=== PATIENT | male | born 1955 | race Caucasian/White ===

== ENCOUNTER 2023-06-13 20:25 | Inpatient (IN) | payer OTHER, SELFPAY ==
--- NOTE | 2023-06-13 | ECG_ITS ---
Test Reason : CHEST PAIN Blood Pressure : / mmHG Vent. Rate : 075 BPM Atrial Rate : 075 BPM P-R Int : 106 ms QRS Dur : 084 ms QT Int : 374 ms P-R-T Axes : 072 071 065 degrees QTc Int : 417 ms Poor data quality, interpretation may be adversely affected Sinus rhythm with short KS Otherwise normal ECG When compared with ECG of 16-APR-2019 17:44, Questionable change in QRS duration KS interval has decreased Referred By: Generic ED Physician Electronically Signed By:LEXA ENRIQUEZ
--- NOTE | ~2023-06-13 | XR_ITS ---
EXAMINATION: XR CHEST CLINICAL INFORMATION: Spontaneous pneumothorax COMPARISON: 06/14/2023 TECHNIQUE: AP portable upright (time stamp 0725 hours) view of the chest was obtained. FINDINGS: The left pleural pigtail catheter has become partially withdrawn. There is persistent subcutaneous emphysema on the left. Trace left pneumothorax is visualized. Diffusely thick-walled airways and streaky atelectasis at the left base again noted. Stable heart and mediastinum. No acute osseous finding. Postsurgical changes in the right upper quadrant. Nonobstructive gas pattern. XR/XR chest 1V IMPRESSION: Partial withdrawal of left pleural pigtail catheter with trace left pneumothorax
--- NOTE | ~2023-06-13 | XR_ITS ---
EXAMINATION: XR CHEST CLINICAL INFORMATION: Pneumothorax COMPARISON: Previous images from 06/13/2023 TECHNIQUE: AP upright portable view of the chest was obtained. FINDINGS: Left pleural pigtail catheter in place at the lateral left base. Persistent moderate subcutaneous emphysema without improvement. Trace left apical pneumothorax. Persistent diffuse abnormal reticular lung markings. Stable heart and mediastinum. Postsurgical changes in the right upper quadrant. Nonobstructive gas pattern. XR/XR chest 1V IMPRESSION: Persistent trace left apical pneumothorax and moderate subcutaneous emphysema with pleural pigtail catheter placed. Persistent diffuse reticular lung markings.
--- NOTE | ~2023-06-13 | XR_ITS ---
EXAMINATION: XR CHEST CLINICAL INFORMATION: Dyspnea COMPARISON: None available. TECHNIQUE: 2 views of the chest were obtained. FINDINGS: Cardiac leads overlie the chest. The lungs are well expanded. There is a large left-sided pneumothorax. The right lung is clear. The cardiomediastinal silhouette is within normal limits. Degenerative changes of the spine. No acute osseous abnormality seen. There is anterior wedging of a mid thoracic vertebral body. XR/XR chest 2V IMPRESSION: Large left-sided pneumothorax. This critical result was discussed with Dr. Mendoza by telephone at 06/13/2023 9:39 PM and it was ascertained that the content and urgency of the report was understood at the time of direct communication.
--- NOTE | ~2023-06-13 | XR_ITS ---
EXAMINATION: XR chest 1V CLINICAL INFORMATION: Reason for Exam Chest Tube COMPARISON: Prior chest x-ray 06/13/2023 same day earlier TECHNIQUE: XR chest 1V Tubes and lines: Left chest tube inserted. Lungs and pleura: Left lung reexpanded. Mild interstitial opacification left lung base might be mild infiltrate or atelectasis unchanged. Probably very small residual left apical pneumothorax. Heart and mediastinum: The mediastinum is within normal limits.. Bones/soft tissue: Skeletal structures included are normal for patient's age. XR/XR chest 1V IMPRESSION: Chest tube inserted on the left, properly positioned. Left pneumothorax significantly improved. Left lung reexpanded. Probably residual very mild left apical pneumothorax. Mild infiltrate and/or atelectasis left lung base unchanged.
--- NOTE | ~2023-06-13 | XR_ITS ---
EXAMINATION: XR CHEST CLINICAL INFORMATION: Left-sided pneumothorax on water seal COMPARISON: Previous chest x-ray most recent from yesterday TECHNIQUE: Frontal view of the chest was obtained. FINDINGS: Pigtail chest tube at the left lung base. Small left apical pneumothorax similar to yesterday's exam. The cardiac and mediastinal contours are stable. Small 2 to 3 mm dense left upper lobe nodule question representing a calcified granuloma. Subsegmental atelectasis at the lung bases. No significant pleural effusion. Small amount of left chest wall subcutaneous emphysema. XR/XR chest 1V IMPRESSION: Satisfactory position of left chest tube. Small left apical pneumothorax similar to yesterday's exam.
[2023-06-13 20:31] VITALS: BP 122/60; BP 149/85; PULSE 75; PULSE 83; RESP 20; TEMP 36.9; O2SAT 93; O2SAT 96; BMI 25.5
[2023-06-13 20:43] VITALS: PULSE 74
--- NOTE | 2023-06-13 20:49 | MHC.EDTECH ---
patient came in via ems ekg taken and was read by provider ,pt was hooked up to telemetry monitor ,vitals sign taken ,RN in room triaging patient ,pt was bladder changer into hospital attire .
--- NOTE | 2023-06-13 21:00 | PC.NURSE ---
Pt BIBA from home, Pt reports 7/10 constant sharp substernal/left side, no radiating, CP starting at 1530, worsening at 1830, unbearable at 2000, no relief with nitro spray given by EMS. Pt also reports SOB, Pt speaking in full sentences, Spo2 93% on RA, non labored breathing, lung sounds diminished to left side.
--- NOTE | 2023-06-13 21:00 | MHC.EDTECH ---
PATIENT BLOOD DRAWN AND SENT TO LAB .
[2023-06-13 21:02] LABS: MANUAL DIFF FLAG NO
[2023-06-13 21:12] LABS: Basophils Absolute Auto 0.1 X10*3/uL (0.0-0.2); Basophils Percent Auto 0.8 % (0-2); Eosinophils Absolute Auto 0.4 X10*3/uL (0.0-0.4); Eosinophils Percent Auto 4.5 % (0-4); Hematocrit 45.9 % (42.0-52.0); Hemoglobin 15.9 g/dl (14.0-18.0); Imm Gran Abs Auto 0.02 X10*3/uL (0.00-0.03); Imm Gran Pct Auto 0.2 % (0.0-0.4); Lymphocytes Percent Auto 22.2 % (20-40); Mean Corpuscular HGB Conc 34.6 g/dl (31.0-36.0); Mean Corpuscular Hemoglobin 31.5 pg (27.0-33.0); Mean Corpuscular Volume 90.9 fL (80.0-98.0); Mean Platelet Volume 9.4 fL (9.4-12.4); Monocytes Absolute Auto 0.7 X10*3/uL (0.1-1.2); Monocytes Percent Auto 8.1 % (2-11); Neutrophils Absolute Auto 5.7 x10*3/uL (2.0-8.3); Neutrophils Percent Auto 64.2 % (45-73); Platelet Count 200 X10*3/uL (160-400); Red Blood Count 5.05 X10*6/uL (4.60-5.80); Red Cell Distribution Width 12.6 % (11.0-16.0); White Blood Count 8.9 X10*3/uL (4.8-10.8)
[2023-06-13 21:33] LABS: Alanine Aminotransferase 21 U/L (0-40); Albumin Level 4.2 g/dL (3.5-5.0); Alkaline Phosphatase 81 U/L (39-117); Anion Gap 13 (12-20); Aspartate Amino Transferase 18 U/L (5-37); Bilirubin Total 0.5 mg/dL (0.0-1.0); Blood Urea Nitrogen 22 mg/dL (9-16); Calcium 10.6 mg/dL (8.4-10.2); Carbon Dioxide 27 mmol/L (22-29); Chloride 108 mmol/L (96-108); Creatinine Clr Calc Pharmacy 52.9; Estimated Glomerular Filt Rate 51; Glucose Random 91 mg/dL (60-115); Potassium 5.2 mmol/L (3.3-5.1); Sodium 143 mmol/L (135-145); Total Protein 7.8 g/dL (6.5-8.0)
--- NOTE | 2023-06-13 21:37 | ED_ITS ---
HPI - Chest Pain General Chief Complaint: Chest Pain Stated Complaint: CHEST PAIN Time Seen by Provider: 06/13/23 21:30 Source: patient Mode of arrival: ambulatory Limitations: no limitations History of Present Illness HPI narrative: Patients with hx DVT on Eliquis no known coronary artery disease comes in for chest pain started earlier at 15:30 today constant sharp substernal and left- sided chest pain with increased shortness of breath, no radiation chest pain got worse at 18:30 EMS gave aspirin and nitro spray x3 with no relief EKG on arrival without any acute ischemic changes Related Data Home Medications Medication Instructions Recorded Confirmed 2 Sleep medicines PO 07/26/22 Anxiety medicine PO 07/26/22 amitriptyline 10 mg tablet 10 - 20 mg PO BEDTIME PRN insomnia 08/08/22 albuterol sulfate 90 mcg/actuation 2 puff inhalation Q6H PRN wheezing 06/13/23 06/13/23 aerosol inhaler (Ventolin HFA) apixaban 5 mg tablet (Eliquis) 5 mg PO BID 06/13/23 06/13/23 atorvastatin 20 mg tablet 20 mg PO DAILY 06/13/23 06/13/23 fluticasone fur. 100 mcg-umeclid 1 ea inhalation DAILY 06/13/23 06/13/23 62.5 mcg-vilant 25 mcg inhalat.powder (Trelegy Ellipta) metoprolol tartrate 25 mg tablet 25 mg PO BID 06/13/23 06/13/23 Previous Rx's Medication Instructions Recorded hydrocortisone 1 % lotion 1 appl topical TID PRN skin 08/08/22 (Anti-Itch (hydrocortisone)) irritation #120 mL triamcinolone acetonide 0.1 % 1 appl topical BID 30 days #80 09/23/22 topical cream grams Allergies Allergy/AdvReac Type Severity Reaction Status Date / Time Iodinated Contrast Media Allergy Hives Verified 06/13/23 20:43 [Contrast Dye] Review of Systems Review of Systems: Yes all other systems are reviewed and are negative [facility] Past Medical History Medical History COPD (chronic obstructive pulmonary disease) DVT (deep venous thrombosis) Mixed hyperlipidemia Tobacco abuse Social History Social History Alcohol intake: former Patient Tobacco Use Status: Current everyday Tobacco user Smoked in Last 30 Days: Yes Use of substances other than those prescribed or required for medical reasons: No Advance Directives: No Advance Directives Information Provided: Yes Nutrition Risks: No Nutritional Risk Physical Exam Vital Signs: Vital Signs: Last Vital Signs Temp 98.2 F 06/14/23 02:33 Pulse 67 06/14/23 02:33 Resp 22 H 06/14/23 02:33 BP 145/80 H 06/14/23 02:33 Pulse Ox 97 06/14/23 02:33 O2 Del Method Room Air 06/14/23 02:33 O2 Flow Rate 4 06/14/23 01:48 BMI result Body Mass Index 25.5 Appearance: Alert. Oriented X3. No acute distress. Eyes: PERRLA, No Nystagmus ENT: Pharynx normal. Oral Mucosa moist Neck: Normal inspection. Neck supple. CVS: Normal heart rate and rhythm. Pulses normal. Respiratory: No respiratory distress. Hyper-resonant decreased air entry on the left side, no midline shift no wheezing/rales/rhonchi Abdomen: Soft and nontender. Bowel sounds are present, no mass palpable, no CVA tenderness Skin: Skin warm and dry. Normal skin color. Normal skin turgor. Extremities: No lower extremity edema. No calf tenderness Neuro: Oriented X 3. No motor deficit. Medications Administered Generic Name Dose Route Start Last Admin Trade Name Freq PRN Reason Stop Dose Admin Acetaminophen 650 mg 06/14/23 00:02 06/14/23 01:45 Acetaminophen 325 Mg Tablet PO 650 mg Q6H PRN Administration Pain, Mild (Pain Scale 1-3) Discontinued Medications Generic Name Dose Route Start Last Admin Trade Name Freq PRN Reason Stop Dose Admin Lidocaine 1 patch 06/14/23 03:51 06/14/23 04:02 Lidocaine 4 % Patch Adh..Patch TRANSDERMA 06/14/23 03:52 1 patch ONCE ONE Administration Protocol Tramadol HCl 50 mg 06/13/23 23:28 06/13/23 23:35 Tramadol Hcl 50 Mg Tablet PO 06/13/23 23:29 50 mg ONCE ONE Administration Tramadol HCl 50 mg 06/14/23 03:46 06/14/23 04:02 Tramadol Hcl 50 Mg Tablet PO 06/14/23 03:47 Not Given ONCE ONE Procedures Chest Tube Chest Tube 1: Chest Tube Location: left and fifth interspace Size of Tube (cm): 14 Chest Tube Prep: Yes betadine prep and sterile drapes applied Local Anesthetic: lidocaine 2% Amount of anesthesia used (mL): 5 Incision Made With: #10 blade Post Procedure: sutured to skin and sterile dressing applied Tube Drainage: none Post Procedure CXR?: Yes Patient Tolerated Procedure: Yes Medical Decision Making Medical Decision Making [facility] Narrative: Patient with left pneumothorax will place chest tube Differential Diagnosis Differential Diagnoses: The differential diagnosis associated with the presentation includes ACS/pneumothorax/pneumonia/bronchitis/atypical chest pain Consult Healthcare Provider Management of the patient was discussed with: Hospitalist Lab Data [facility] Lab Attestation statement: I reviewed the patient's lab results. 06/13/23 20:58 06/13/23 20:58 Labs: Lab Results 06/13/23 06/13/23 06/13/23 Range/Units 20:58 20:58 20:58 WBC 8.9 (4.8-10.8) X10*3/uL RBC 5.05 (4.60-5.80) X10*6/uL Hgb 15.9 (14.0-18.0) g/dl Hct 45.9 (42.0-52.0) % MCV 90.9 (80.0-98.0) fL MCH 31.5 (27.0-33.0) pg MCHC 34.6 (31.0-36.0) g/dl RDW 12.6 (11.0-16.0) % Plt Count 200 (160-400) X10*3/uL MPV 9.4 (9.4-12.4) fL Immature Gran % (Auto) 0.2 (0.0-0.4) % Neut % (Auto) 64.2 (45-73) % Lymph % (Auto) 22.2 (20-40) % [place] % (Auto) 8.1 (2-11) % Eos % (Auto) 4.5 H (0-4) % Baso % (Auto) 0.8 (0-2) % Lymph # (Auto) 2.0 (1.2-4.9) X10*3/uL [place] # (Auto) 0.7 (0.1-1.2) X10*3/uL Eos # (Auto) 0.4 (0.0-0.4) X10*3/uL Baso # (Auto) 0.1 (0.0-0.2) X10*3/uL Abs Immat Gran (auto) 0.02 (0.00-0.03) X10*3/uL Absolute Neuts (auto) 5.7 (2.0-8.3) x10*3/uL Absolute Nucleated RBC 0.000 (0.0-0.012) X10*3/uL Nucleated RBC % (auto) 0.0 (0.0-0.2) /100WBC Sodium 143 (135-145) mmol/L Potassium 5.2 H (3.3-5.1) mmol/L Chloride 108 (96-108) mmol/L Carbon Dioxide 27 (22-29) mmol/L Anion Gap 13 (12-20) BUN 22 H (9-16) mg/dL Creatinine 1.39 (0.5-1.4) mg/dL Estim Creat Clear Calc 52.9 Estimated GFR 51 Random Glucose 91 (60-115) mg/dL Calcium 10.6 H (8.4-10.2) mg/dL Total Bilirubin 0.5 (0.0-1.0) mg/dL AST 18 (5-37) U/L ALT 21 (0-40) U/L Alkaline Phosphatase 81 (39-117) U/L Troponin I High Sens < 2.7 (<3.5-35.0) ng/L Total Protein 7.8 (6.5-8.0) g/dL Albumin 4.2 (3.5-5.0) g/dL Critical Care Time Critical Care Time Critical Care Time: Yes Total Critical Care Time: 45 Attestation: The patient was critically ill with a high probability of imminent or life threatening deterioration. I spent greater than 50 minutes of discontinuous time evaluating the patient,delivering critical care at the bedside, discussing and evaluating pertinent data with consultants. Critical care time does not include time spent performing separately billable procedures or teaching. Total time spent performing critical care was 45 minutes. Discharge Plan Discharge Clinical Impression: Pneumothorax Patient Disposition: Admitted As Inpatient
[2023-06-13 21:42] LABS: Troponin-I High Sensitivity < 2.7 ng/L (<3.5-35.0)
--- NOTE | 2023-06-13 22:30 | PC.NURSE ---
Left sided Chest tube placed by Dr. Malloy, 80 wall suction, continuos suction at -20. Pt denies CP, reports pain to insertion site. Medicated per DEC.
[2023-06-13 22:41] VITALS: BP 132/78; PULSE 73; RESP 16; TEMP 36.9; O2SAT 99
[2023-06-13] MEDS: traMADoL HCL 50 MG TABLET PO (23:35)
[2023-06-13 23:53] VITALS: BP 143/77; PULSE 68; RESP 18; TEMP 36.9; O2SAT 98
--- NOTE | 2023-06-13 23:54 | MHC.EDTECH ---
0000 ROUNDING DONE ,VITALS SIGN TAKEN ,PT WATCHING TELEVISION ,PT GIRLFRIEND AT BEDSIDE .
--- NOTE | 2023-06-14 00:05 | P.HPHOSP_ITS ---
History of Present Illness Date of Service: 06/14/23 Chief Complaint: Dyspnea This is a 67-year-old male with pertinent history of DVT on Eliquis, mixed hyperlipidemia, COPD not on home oxygen, tobacco use disorder who presents to the emergency department for evaluation of dyspnea and chest discomfort. Patient states he had sudden onset of chest discomfort while he was watching television. It was constant, nonradiating and without any relieving factors. Patient called EMS and said he received aspirin and nitroglycerin with did not reduce the chest discomfort. It was associated with dyspnea, worse with ex ertion. Patient denies fever, chills, palpitations, abdominal pain, changes in urinary or bowel habits. In the emergency department, imaging with pneumothorax and chest tube was placed. Review of Systems Constitutional: Constitutional: Reports no additional constitutional complaints Cardiovascular: Cardiovascular: Reports chest pain, Reports chest pain at rest and Reports dyspnea Respiratory: Respiratory: Reports dyspnea Gastrointestinal: Gastrointestinal: Reports no additional gastrointestinal complaints Genitourinary: Genitourinary: Reports no additional male genitourinary complaints [facility] Medical History COPD (chronic obstructive pulmonary disease) DVT (deep venous thrombosis) Mixed hyperlipidemia Tobacco abuse Pertinent family history: No family history of early CAD Social History Alcohol intake: former Patient Tobacco Use Status: Current everyday Tobacco user Smoked in Last 30 Days: Yes Use of substances other than those prescribed or required for medical reasons: No Advance Directives: No Advance Directives Information Provided: Yes Nutrition Risks: No Nutritional Risk Meds Allergies Allergy/AdvReac Type Severity Reaction Status Date / Time Iodinated Contrast Media Allergy Hives Verified 06/13/23 20:43 [Contrast Dye] Home Medications Medication Instructions Recorded Confirmed Last Taken Type 2 Sleep medicines PO 07/26/22 Unknown History Anxiety medicine PO 07/26/22 Unknown History amitriptyline 10 mg tablet 10 - 20 mg PO BEDTIME PRN insomnia 08/08/22 Unknown History albuterol sulfate 90 mcg/actuation 2 puff inhalation Q6H PRN wheezing 06/13/23 06/13/23 Unknown History aerosol inhaler (Ventolin HFA) apixaban 5 mg tablet (Eliquis) 5 mg PO BID 06/13/23 06/13/23 Unknown History atorvastatin 20 mg tablet 20 mg PO DAILY 06/13/23 06/13/23 Unknown History fluticasone fur. 100 mcg-umeclid 1 ea inhalation DAILY 06/13/23 06/13/23 Unknown History 62.5 mcg-vilant 25 mcg inhalat.powder (Trelegy Ellipta) metoprolol tartrate 25 mg tablet 25 mg PO BID 06/13/23 06/13/23 Unknown History Physical Exam Vital Signs and Narrative: Vital Signs: Last Vital Signs Temp 98.5 F 06/13/23 23:53 Pulse 68 06/13/23 23:53 Resp 18 06/13/23 23:53 BP 143/77 H 06/13/23 23:53 Pulse Ox 98 06/13/23 23:53 O2 Del Method Nasal Cannula 06/13/23 23:53 O2 Flow Rate 4 06/13/23 23:53 BMI result Body Mass Index 25.5 Middle-aged male lying in bed in mild distress on supplemental oxygen Neck supple, no JVD Regular rate and rhythm, S1-S2 heard Reduced left-sided breath sounds, chest tube present to suction Abdomen soft nontender, no guarding, no rigidity Patient is awake, alert and oriented to self, place, time and person ; no focal motor deficit Psych: Normal mood No pedal edema Results Labs 06/13/23 20:58 06/13/23 20:58 Labs: Laboratory Results - last 24 hr 06/13/23 06/13/23 20:58 20:58 MCV 90.9 MCH 31.5 MCHC 34.6 RDW 12.6 Plt Count 200 MPV 9.4 Immature Gran % (Auto) 0.2 Neut % (Auto) 64.2 Lymph % (Auto) 22.2 [place] % (Auto) 8.1 Eos % (Auto) 4.5 H Baso % (Auto) 0.8 Lymph # (Auto) 2.0 [place] # (Auto) 0.7 Eos # (Auto) 0.4 Baso # (Auto) 0.1 Abs Immat Gran (auto) 0.02 Absolute Neuts (auto) 5.7 Absolute Nucleated RBC 0.000 Nucleated RBC % (auto) 0.0 Anion Gap 13 Estim Creat Clear Calc 52.9 Estimated GFR 51 Random Glucose 91 Calcium 10.6 H Total Bilirubin 0.5 AST 18 ALT 21 Alkaline Phosphatase 81 Total Protein 7.8 Albumin 4.2 Imaging Radiologist's Impressions: Impressions Chest X-Ray 06/13/23 21:22 IMPRESSION: Large left-sided pneumothorax. This critical result was discussed with Dr. Mendoza by telephone at 06/13/2023 9:39 PM and it was ascertained that the content and urgency of the report was understood at the time of direct communication. Chest X-Ray 06/13/23 22:33 IMPRESSION: Chest tube inserted on the left, properly positioned. Left pneumothorax significantly improved. Left lung reexpanded. Probably residual very mild left apical pneumothorax. Mild infiltrate and/or atelectasis left lung base unchanged. Assessment and Plan (1) Pneumothorax: Status: Acute Plan This is a 67-year-old male with pertinent history of DVT on Eliquis, mixed hyperlipidemia, COPD not on home oxygen, tobacco use disorder who presents to the emergency department for evaluation of dyspnea and chest discomfort. #. Spontaneous pneumothorax, secondary in the setting of COPD. Counseled regarding cessation of tobacco use. Continue chest tube to suction. Repeat chest x-ray in a.m.. Consulted thoracic surgery, appreciate assistance #. Acute hypoxemic respiratory failure in the setting of above. Monitor oxygen saturation and wean as tolerated. Maintain oxygen saturation greater than 88% #. Mixed hyperlipidemia. On statin #. DVT: On Eliquis #. COPD. Continue home inhalers #. Tobacco use disorder. Refused nicotine patch Med rec pending DVT prophylaxis: Eliquis Full code Admit as inpatient and will require two night minimum hospital stay for supplemental oxygen. Specialist consult pending Time Spent With Patient Time: Total time managing care of this patient today ____ minutes. Quality Stroke Does the patient have a stroke diagnosis?: No VTE Prior VTE?: Yes VTE Risk Level:: Medical - moderate - high VTE Device Contraindication: Treatment Not Indicated VTE Drug Contraindication: N/A - Med Ordered
[2023-06-14] MEDS: Acetaminophen 325 MG TABLET 650 MG PO ×3 (01:45→15:14)
[2023-06-14 01:48] VITALS: BP 138/88; PULSE 70; RESP 22; O2SAT 100
--- NOTE | 2023-06-14 01:49 | PC.NURSE ---
Nurse to nurse report given, Pt will be transported to ED overflow, Pt aware of plan.
[2023-06-14 02:33] VITALS: BP 145/80; PULSE 67; RESP 22; TEMP 36.8; O2SAT 97
[2023-06-14] MEDS: Lidocaine 4 % Patch ADH..PATCH 1 PATCH TRANSDERMA (04:02)
--- NOTE | 2023-06-14 04:48 | PC.NURSE ---
Pt arrived to ED overflow from main ED at 02:30 07/15. Awaiting bed assignment on med-surg for c/c of chest pain. ED EKG showing NSR, imaging showed left PTX for which a left lateral chest tube was placed in the main ED. Chest tube continues to -20sx as on arrival. No crepitus or air leak noted. Scant drainage noted in the canister. Insertion site has a tegaderm that is c/d/i without drainage noted beneath. Pt is A&Ox4, calm and cooperative. Pt denies chest pain but does c/o pain at left flank surrounding the chest tube insertion site. Pt vocalized to this auto service writer that he does not want opiates, stating ?I am in recovery from opiates and I?ve come too far now with it. I?d rather be in a little pain now versus a lot of pain down the road?. Tylenol ineffective per pt report. Covering Dr. Ruiz notified and pt?s pain management wishes and needs discussed. Lidocaine patch ordered and placed. Pillow provided for thoracic splinting and pt educated on importance of use for deep breathing, coughing, sneezing, etc. Pt weaned to RA on arrival with spo2 maintained. Denies sob. Breathing is even and unlabored without distress. Pt resting in bed at this time. Will continue to monitor for the remainder of this auto service writer's shift.
[2023-06-14 05:25] LABS: Basophils Percent Auto 0.4 % (0-2); Eosinophils Absolute Auto 0.4 X10*3/uL (0.0-0.4); Eosinophils Percent Auto 3.8 % (0-4); Hematocrit 45.5 % (42.0-52.0); Hemoglobin 15.9 g/dl (14.0-18.0); Imm Gran Abs Auto 0.02 X10*3/uL (0.00-0.03); Imm Gran Pct Auto 0.2 % (0.0-0.4); Lymphocytes Absolute Auto 2.1 X10*3/uL (1.2-4.9); Lymphocytes Percent Auto 22.7 % (20-40); MANUAL DIFF FLAG NO; Mean Corpuscular HGB Conc 34.9 g/dl (31.0-36.0); Mean Corpuscular Hemoglobin 31.5 pg (27.0-33.0); Mean Corpuscular Volume 90.1 fL (80.0-98.0); Mean Platelet Volume 8.9 fL (9.4-12.4); Monocytes Absolute Auto 0.7 X10*3/uL (0.1-1.2); Monocytes Percent Auto 7.3 % (2-11); Neutrophils Percent Auto 65.6 % (45-73); Platelet Count 171 X10*3/uL (160-400); Red Blood Count 5.05 X10*6/uL (4.60-5.80); Red Cell Distribution Width 12.7 % (11.0-16.0); White Blood Count 9.1 X10*3/uL (4.8-10.8)
[2023-06-14 05:41] LABS: Anion Gap 12 (12-20); Blood Urea Nitrogen 25 mg/dL (9-16); Carbon Dioxide 24 mmol/L (22-29); Chloride 107 mmol/L (96-108); Creatinine Clr Calc Pharmacy 56.2; Estimated Glomerular Filt Rate 55; Glucose Random 94 mg/dL (60-115); Potassium 4.3 mmol/L (3.3-5.1); Sodium 139 mmol/L (135-145)
--- NOTE | 2023-06-14 07:00 | PHA.MEDREC ---
Pharmacy Consult ? Medication Reconciliation Pharmacy has reviewed the medication reconciliation done by RN
[2023-06-14 09:58] VITALS: BP 144/73; PULSE 72; RESP 16; TEMP 36.8; O2SAT 94
--- NOTE | 2023-06-14 12:15 | PM.EVENT ---
Event Note Date of Service: 06/14/23 Event Note: This is a 67-year-old male with pertinent history of DVT on Eliquis, mixed hyperlipidemia, COPD not on home oxygen, tobacco use disorder who presents to the emergency department for evaluation of dyspnea and chest discomfort. Spontaneous pneumothorax, secondary in the setting of COPD.? Continue chest tube to suction.? Repeat chest x-ray showing persistent trace left apical pneumothorax and moderate subcutaneous emphysema with pleural pigtail catheter in place thoracic surgery consult pending pain management (prefers non narcotic medications due to hx of substance abuse) Acute hypoxemic respiratory failure in the setting of above.? Resolved Monitor oxygen saturation and wean as tolerated.? Maintain oxygen saturation greater than 88% Mixed hyperlipidemia.? On statin DVT On lifelong Eliquis, hold due to ct placement COPD.? Continue home inhalers Tobacco use disorder.? Refused nicotine patch DVT prophylaxis:? Eliquis on hold Full code Admit as inpatient and will require two night minimum hospital stay for supplemental oxygen.? Specialist consult pending Time Spent With Patient Time: Total time managing care of this patient today ____ minutes.
[2023-06-14 12:31] VITALS: BP 149/80; PULSE 72; RESP 20; TEMP 36.5; O2SAT 93
[2023-06-14 12:55] VITALS: BMI 26.0
[2023-06-14 16:01] VITALS: BP 141/89; PULSE 68; RESP 20; TEMP 36.6; O2SAT 96
--- NOTE | 2023-06-14 16:05 | PM.PNTS ---
Subjective Subjective Date of Service: 06/14/23 Interval history: 67 y/o gentleman who presented to [place] ED via EMS yesterday for sharp sternal pain that traveled across his chest. The intensity worsened and he became more short of breath and called EMS. He was brought to and ruled out for ischemic cardiac changes. CXR confirmed a left pneumothorax and a pigtail drain was placed on the left side by the ED MD. Thoracic surgery was consulted for management of his chest tube. He is a recovering alcohol and is refusing narcotic pain medication and is still in some pain. 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 PSH: S/P cholecystectomy, Laser surgery for poor circulation in the left LE. SH: current smoker. started @ age 18. Smokes an avg of 1 ppd until recently (now 3 - 5 cigarettes/day), [id number]. Pt is a recovering alcoholic, denies IVDA and lives alone. Allergies: IV contrast dye Medications: as reported in med rec ROS: pt denies CVA, TIA, ameurosis fugax, any new lumps/bumps suggestive of lymphadenopathy, unintentional weight loss, hemoptysis, hematemeis, melena, bleeding dyscrasias, frequent bouts of bronchitis or pneumonia, fall, trauma, or any type of injury. he admits to coughing just before the pain started. He states that this was his normal COPD cough- no different. CXR: Persistent trace left apical pneumothorax and moderate subcutaneous emphysema with pleural pigtail catheter placed. Persistent diffuse reticular lung markings. Reviewed labs Physical Exam Vital Signs: Vital Signs: Last Vital Signs Temp 97.8 F 06/14/23 16:01 Pulse 68 06/14/23 16:01 Resp 20 06/14/23 16:01 BP 141/89 H 06/14/23 16:01 Pulse Ox 96 06/14/23 16:01 O2 Del Method Room Air 06/14/23 16:01 O2 Flow Rate 4 06/14/23 01:48 BMI result Body Mass Index 26.0 Const: Other: Mr. Rhodes states that he feels better than yesterday. He denies any chest pain but does say that he has pain around the tube site. HEENT: Other: NC/AT, EOMI. no sinus tenderness, no JVD, tongue midline, and hearing intact. Chest: Chest palpation & inspection: normal inspection of the chest Breast/axilla palpation: axillary lymphadenopathy not noted Resp: Effort & Inspection: normal respiratory effort and audible wheezes (bilaterally anteriorly and posteriorly) Cardio: Jugular venous distension: no JVD Rate: regular rate Rhythm: regular rhythm GI: Other: abdominal distension that he reports as normal, firm, normal BS throughout : Other: voiding freely Skin: Other: Venous stasis in bilateral lower extremities Neuro: Other: Grossly intact and strenth equal bilaterally Extrem: Other: Pulses: L/R carotid 2+ bilaterally, L/R radial 2+ bilateral, Femoral L/R 2+ bilaterally, Psych: Other: appropriate Procedures Date of Service Date of Service: 06/14/23 Progress Note: A&P Assessment and plan (1) Pneumothorax: Status: Acute (2) COPD (chronic obstructive pulmonary disease): Status: Acute (3) Tobacco abuse: Status: Acute Plan Left sided spontaneous pneumothorax Mr. Rhodes is a 67 y/o gentleman who presents with a left sided spontaneous ptx who had no recent trauma or fall but had been sitting on his couch coughing when the chest pain and SOB began. ? Rupture of bleb. He sought treatment @ . Near complete left ptx was found upon CXR. Left 14 indonesian pigtail placed with near resolution. Residual Trace left apical ptx remaining. There is minimal drainage and no air leak present. Plan: Keep CT to -20 mm Hg X 48 hours to maintain lung to adhere to chest wall after which we will determine changing to waterseal. CXR in am. Adequate pain management: pt requesting to avoid narcotics, recommend ATC Acetaminophen (if able to tolerate @ a lower dose due to fatty liver dz), Advil, 4% Lidocaine patch, Gabapentin 100 mg TID COPD: inhalers to limit wheezing and cough Tobacco abuse - pt is looking to stop smoking. Nicoderm is he is agreeable. OOB and ambute in room while on suction Pulmonary Rehab to include Incentive Spirometry and Flutter valve and needs education. DVT prophylaxis: okay for SQ heparin Continue to follow patient Time Spent With Patient Time: Total time managing care of this patient today ____ minutes. Quality Stroke Does the patient have a stroke diagnosis?: No VTE Prior VTE?: Yes VTE Risk Level:: Medical - moderate - high VTE Device Contraindication: Treatment Not Indicated VTE Drug Contraindication: N/A - Med Ordered
[2023-06-14] MEDS: Gabapentin 100 MG CAPSULE PO (18:21)
[2023-06-14] MEDS: 0.9 % Sodium Chloride Flush 3 ML SYRINGE IVFLUSH ×2 (18:23→22:50)
[2023-06-14 19:36] VITALS: BP 142/78; PULSE 66; RESP 20; TEMP 36.2; O2SAT 95
[2023-06-14] MEDS: Enoxaparin Sodium 40 MG/0.4 ML SYRINGE SUBCUT (21:19)
[2023-06-14] MEDS: Metoprolol Tartrate 25 MG TABLET PO (21:19)
[2023-06-14] MEDS: HYDROmorphone HCl 1 MG/ML SYRINGE IVPUSH (22:49)
[2023-06-15 00:20] VITALS: BP 150/90; PULSE 69; RESP 20; TEMP 36.4; O2SAT 92
[2023-06-15 07:09] VITALS: BP 141/81; PULSE 62; RESP 20; TEMP 36.3; O2SAT 95
[2023-06-15] MEDS: Fluticasone/Umeclidinium/Vilanterol 100/62.5/25 BLST.W.DEV 1 PUFF INHALE (07:43)
[2023-06-15 08:15] VITALS: PULSE 66; RESP 20; O2SAT 94
[2023-06-15] MEDS: Metoprolol Tartrate 25 MG TABLET PO ×2 (08:53→21:21)
[2023-06-15] MEDS: 0.9 % Sodium Chloride Flush 3 ML SYRINGE IVFLUSH ×2 (08:53→12:06)
[2023-06-15] MEDS: Gabapentin 100 MG CAPSULE PO ×3 (08:53→21:21)
[2023-06-15] MEDS: Atorvastatin Calcium 20 MG TABLET PO (08:53)
--- NOTE | 2023-06-15 10:03 | HO.PM.IMPN ---
Subjective Subjective Date of Service: 06/15/23 Review of Systems Follow up pneumothorax still pain at insertion site Physical Exam Vital Signs: Vital Signs: Last Vital Signs Temp 97.4 F 06/15/23 07:09 Pulse 66 06/15/23 08:15 Resp 20 06/15/23 08:15 BP 141/81 H 06/15/23 07:09 Pulse Ox 95 06/15/23 07:09 O2 Del Method Room Air 06/15/23 07:09 O2 Flow Rate 4 06/14/23 01:48 BMI result Body Mass Index 26.0 Appearing in no acute distress lung sounds are clear to auscultation, Left pneumothorax and pigtail drain with CT to -20 suction heart regular rate rhythm, clear S1, S2 positive bowel sounds, abdomen is soft, nontender neuro patient is alert x3, no focal deficits Objective Data Active Medications Acetaminophen (Acetaminophen 325 Mg Tablet) 650 mg PO Q6H PRN PRN Reason: Pain, Mild (Pain Scale 1-3) Last Admin: 06/14/23 15:14 Dose: 650 mg Documented By: AMY Acetaminophen (Acetaminophen Supp 650 Mg Supp.Rect) 650 mg ND Q6H PRN PRN Reason: Pain, Mild (Pain Scale 1-3) Albuterol Sulfate (Albuterol Sulfate 90 Mcg 8 Gm Inhaler) 2 puff INHALE Q6H PRN PRN Reason: wheezing Atorvastatin Calcium (Atorvastatin Calcium 20 Mg Tablet) 20 mg PO DAILY [facility] Last Admin: 06/15/23 08:53 Dose: 20 mg Documented By: AMY Fluticasone/Umeclidinium/Vilanterol (Fluticasone/Umeclidinium/Vilanterol 100/62.5/25 Blst.W.Dev) 1 puff INHALE DAILY [facility] Last Admin: 06/15/23 07:43 Dose: 1 puff Documented By: MICHELLE Gabapentin (Gabapentin 100 Mg Capsule) 100 mg PO TID [facility] Last Admin: 06/15/23 08:53 Dose: 100 mg Documented By: AMY Melatonin (Melatonin 3 Mg Tablet) 6 mg PO BEDTIME PRN PRN Reason: Insomnia Metoprolol Tartrate (Metoprolol Tartrate 25 Mg Tablet) 25 mg PO BID [facility]; Protocol Last Admin: 06/15/23 08:53 Dose: 25 mg Documented By: AMY Ondansetron HCl (Ondansetron Hcl 4 Mg/2 Ml Vial) 4 mg IVPUSH Q8H PRN PRN Reason: Nausea and Vomiting Oxycodone HCl (Oxycodone Hcl Immed Release 5 Mg Tablet) 5 mg PO Q4H PRN PRN Reason: Pain, Mild (Pain Scale 1-3) Pharmacy Consult (Consult Rx Perform Med Rec) 1 each MISCELLANE ONCE PRN PRN Reason: Consult order Sodium Chloride (0.9 % Sodium Chloride Flush 3 Ml Syringe) 3 ml IVFLUSH QSHIFT [facility] Last Admin: 06/15/23 08:53 Dose: 3 ml Documented By: AMY Labs 06/14/23 05:14 06/14/23 05:14 Assessment and Plan (1) COPD (chronic obstructive pulmonary disease): Status: Acute Plan This is a 67-year-old male with pertinent history of DVT on Eliquis, mixed hyperlipidemia, COPD not on home oxygen, tobacco use disorder who presents to the emergency department for evaluation of dyspnea and chest discomfort. Spontaneous pneumothorax, secondary in the setting of COPD, ? Blebs Continue chest tube to suction -20? Repeat chest x-ray? showing persistent trace left apical pneumothorax and moderate subcutaneous emphysema with pleural pigtail catheter in place thoracic surgery following rec> CT to -20 for 48hrs, IS, flutter valve, pain mamagement, NRT pain management (prefers non narcotic medications due to hx of substance abuse) Acute hypoxemic respiratory failure in the setting of above.? Resolved Monitor oxygen saturation and wean as tolerated.? Maintain oxygen saturation greater than 88% Mixed hyperlipidemia.? On statin DVT On lifelong Eliquis, hold due to ct placement COPD.? Continue home inhalers Tobacco use disorder.? Refused nicotine patch DVT prophylaxis:? Eliquis on hold, sc heparin Full code continue hospitalization for chest tube management Time Spent With Patient Time: Total time managing care of this patient today ____ minutes. Quality Stroke Does the patient have a stroke diagnosis?: No VTE Prior VTE?: Yes VTE Risk Level:: Medical - moderate - high VTE Device Contraindication: Treatment Not Indicated VTE Drug Contraindication: N/A - Med Ordered
[2023-06-15] MEDS: Heparin Sodium,Porcine 5,000 UNIT/ML VIAL 5000 UNIT SUBCUT ×2 (10:27→22:37)
[2023-06-15] MEDS: HYDROmorphone HCl 0.5 MG/0.5 ML SYRINGE IVPUSH ×3 (12:06→22:36)
--- NOTE | 2023-06-15 14:12 | P.PNTS_ITS ---
Subjective Subjective Date of Service: 06/15/23 Interval history: Mr. Rhodes is a 67 y/o male with hx of COPD and on Friday was in his usual state of health sitting on the couch and began coughing and subsequently experienced chest pain and SOB. He was found to have a SPTX and pigtail was placed with near resolution. CT has been on - 20 mm Hg since Friday evening and CXR shows residual trace left apical pneumothorax. ROS: pt denies fever, chills, Chest pain,SOB, N/V, abdominal pain & calf pain. He does state that he is beginning to cough up some yellow sputum. He is Pulling > 2L ON IS. Physical Exam Vital Signs: Vital Signs: Last Vital Signs Temp 97.4 F 06/15/23 07:09 Pulse 66 06/15/23 08:15 Resp 20 06/15/23 08:15 BP 141/81 H 06/15/23 07:09 Pulse Ox 95 06/15/23 07:09 O2 Del Method Room Air 06/15/23 07:09 O2 Flow Rate 4 06/14/23 01:48 BMI result Body Mass Index 26.0 Const: Other: He is alert and orientated X 3. He did take some pain medication and is more comfortable. General: cooperative, comfortable and no acute distress HEENT: Head: Yes normal to inspection and Yes atraumatic Ears: hearing grossly normal bilaterally General nose exam: Normal external nose present Face and sinus: Yes normal facial exam and Yes sinuses nontender Mouth: Normal oral and palatal mucosa present Neck: Neck: Yes normal visual inspection and Yes no lymphadenopathy Chest: Chest palpation & inspection: normal inspection of the chest Resp: Auscultation: bronchial breath sounds (with occasional scant wheezes bilaterally) Cardio: Rate: regular rate Rhythm: regular rhythm Neuro: Other: Grossly intact Extrem: Other: No calf tenderness, + bilateral venous stasis changes on LE Psych: Appearance: grossly normal Procedures Date of Service Date of Service: 06/15/23 Progress Note: A&P Assessment and plan (1) Pneumothorax: Start date: 06/13/23 Status: Acute Plan Mr. Rhodes is a 67 y/o gentleman who presents with a left sided spontaneous ptx who had no recent trauma or fall but had been sitting on his couch coughing when the chest pain and SOB began. ? Rupture of bleb.? He sought treatment @ HH.? Near complete left ptx was found upon CXR.? Left 14 english pigtail placed with near resolution.? Residual Trace left apical ptx remaining. There is minimal drainage and no air leak present. Plan: Change CT suction to waterseal tonight. F/U CXR in am. If remains stable, likely to remove tomorrow. Pain management:? pt taking dilaudid prn, ATC Acetaminophen (if able to tolerate @ a lower dose due to fatty liver dz), Advil, 4% Lidocaine patch, and recommend Gabapentin 100 mg TID COPD:? inhalers to limit wheezing and cough. Monitor sputum, may need abx therapy Tobacco abuse - pt is looking to stop smoking.? Nicoderm is he is agreeable. OOB and ambute as tolerates. Pulmonary Rehab to include Incentive Spirometry and Flutter valve and needs education. DVT prophylaxis:? on SQ heparin Continue to follow patient Postoperative Patient Education - No heavy lifting > 10 pounds X 1 month -No flying in airplane for 1 month (patient has an upcoming trip in Sep) -No scuba diving ever - No smoking due to high risk of this occuring again. Time Spent With Patient Time: Total time managing care of this patient today ___30_ minutes. Quality Stroke Does the patient have a stroke diagnosis?: No VTE Prior VTE?: Yes VTE Risk Level:: Medical - moderate - high VTE Device Contraindication: Treatment Not Indicated VTE Drug Contraindication: N/A - Med Ordered
[2023-06-15 15:25] VITALS: BP 110/70; PULSE 74; RESP 20; TEMP 36.3; O2SAT 96
[2023-06-15 19:31] VITALS: BP 117/68; PULSE 74; RESP 16; TEMP 36.3; O2SAT 96
[2023-06-16 03:18] VITALS: BP 139/81; PULSE 75; RESP 18; TEMP 36.2; O2SAT 95
[2023-06-16] MEDS: HYDROmorphone HCl 0.5 MG/0.5 ML SYRINGE IVPUSH ×2 (03:26→08:24)
[2023-06-16 06:56] VITALS: BP 121/75; PULSE 71; RESP 18; TEMP 36.6; O2SAT 91
[2023-06-16] MEDS: Fluticasone/Umeclidinium/Vilanterol 100/62.5/25 BLST.W.DEV 1 PUFF INHALE (08:12)
[2023-06-16 08:17] VITALS: PULSE 82; RESP 18; O2SAT 89
[2023-06-16] MEDS: Gabapentin 100 MG CAPSULE PO (08:24)
[2023-06-16] MEDS: 0.9 % Sodium Chloride Flush 3 ML SYRINGE IVFLUSH (08:24)
[2023-06-16] MEDS: Atorvastatin Calcium 20 MG TABLET PO (08:24)
[2023-06-16] MEDS: Metoprolol Tartrate 25 MG TABLET PO (08:24)
--- NOTE | 2023-06-16 09:04 | HO.PM.IMPN ---
Subjective Subjective Date of Service: 06/16/23 Physical Exam Vital Signs: Vital Signs: Last Vital Signs Temp 97.8 F 06/16/23 06:56 Pulse 82 06/16/23 08:17 Resp 18 06/16/23 08:17 BP 121/75 06/16/23 06:56 Pulse Ox 91 L 06/16/23 06:56 O2 Del Method Room Air 06/16/23 06:56 O2 Flow Rate 4 06/14/23 01:48 BMI result Body Mass Index 26.0 Objective Data Active Medications Acetaminophen (Acetaminophen 325 Mg Tablet) 650 mg PO Q6H PRN PRN Reason: Pain, Mild (Pain Scale 1-3) Last Admin: 06/14/23 15:14 Dose: 650 mg Documented By: AMY Acetaminophen (Acetaminophen Supp 650 Mg Supp.Rect) 650 mg SD Q6H PRN PRN Reason: Pain, Mild (Pain Scale 1-3) Albuterol Sulfate (Albuterol Sulfate 90 Mcg 8 Gm Inhaler) 2 puff INHALE Q6H PRN PRN Reason: wheezing Atorvastatin Calcium (Atorvastatin Calcium 20 Mg Tablet) 20 mg PO DAILY [facility] Last Admin: 06/16/23 08:24 Dose: 20 mg Documented By: LUCILA Fluticasone/Umeclidinium/Vilanterol (Fluticasone/Umeclidinium/Vilanterol 100/62.5/25 Blst.W.Dev) 1 puff INHALE DAILY [facility] Last Admin: 06/16/23 08:12 Dose: 1 puff Documented By: KENNEDY Gabapentin (Gabapentin 100 Mg Capsule) 100 mg PO TID [facility] Last Admin: 06/16/23 08:24 Dose: 100 mg Documented By: LUCILA Heparin Sodium (Porcine) (Heparin Sodium,Porcine 5,000 Unit/Ml Vial) 5,000 unit SUBCUT Q12H [facility] Last Admin: 06/15/23 22:37 Dose: 5,000 unit Documented By: NOE Hydromorphone HCl (Hydromorphone Hcl 0.5 Mg/0.5 Ml Syringe) 0.5 mg IVPUSH Q4H PRN; Protocol PRN Reason: Pain, Mild (Pain Scale 1-3) Last Admin: 06/16/23 08:24 Dose: 0.5 mg Documented By: LUCILA Melatonin (Melatonin 3 Mg Tablet) 6 mg PO BEDTIME PRN PRN Reason: Insomnia Metoprolol Tartrate (Metoprolol Tartrate 25 Mg Tablet) 25 mg PO BID [facility]; Protocol Last Admin: 06/16/23 08:24 Dose: 25 mg Documented By: LUCILA Ondansetron HCl (Ondansetron Hcl 4 Mg/2 Ml Vial) 4 mg IVPUSH Q8H PRN PRN Reason: Nausea and Vomiting Oxycodone HCl (Oxycodone Hcl Immed Release 5 Mg Tablet) 5 mg PO Q4H PRN PRN Reason: Pain, Mild (Pain Scale 1-3) Pharmacy Consult (Consult Rx Perform Med Rec) 1 each MISCELLANE ONCE PRN PRN Reason: Consult order Sodium Chloride (0.9 % Sodium Chloride Flush 3 Ml Syringe) 3 ml IVFLUSH QSHIFT [facility] Last Admin: 06/16/23 08:24 Dose: 3 ml Documented By: LUCILA Labs 06/14/23 05:14 06/14/23 05:14 Assessment and Plan (1) COPD (chronic obstructive pulmonary disease): Status: Acute Plan This is a 67-year-old male with pertinent history of DVT on Eliquis, mixed hyperlipidemia, COPD not on home oxygen, tobacco use disorder who presents to the emergency department for evaluation of dyspnea and chest discomfort. Spontaneous pneumothorax, secondary in the setting of COPD, ? Blebs Continue chest tube to suction -20? thoracic surgery following rec> CT to -20 for 48hrs, IS, flutter valve, pain management, NRT pain management (prefers non narcotic medications due to hx of substance abuse) still with small left apical pneumothorax on cxr Acute hypoxemic respiratory failure in the setting of above.? Resolved Monitor oxygen saturation and wean as tolerated.? Maintain oxygen saturation greater than 88% Mixed hyperlipidemia.? On statin DVT On lifelong Eliquis, hold due to ct placement COPD.? Continue home inhalers Tobacco use disorder.? Refused nicotine patch DVT prophylaxis:? Eliquis on hold, sc heparin Full code attending Dr. Batres continue hospitalization for chest tube management Time Spent With Patient Time: Total time managing care of this patient today ____ minutes. Quality Stroke Does the patient have a stroke diagnosis?: No VTE Prior VTE?: Yes VTE Risk Level:: Medical - moderate - high VTE Device Contraindication: Treatment Not Indicated VTE Drug Contraindication: N/A - Med Ordered
--- NOTE | 2023-06-16 10:33 | P.PNTS_ITS ---
Subjective Subjective Date of Service: 06/16/23 Interval history: Mr. Rhodes is a 67 y/o male with hx of COPD and on Friday was in his usual state of health sitting on the couch and began coughing and subsequently experienced chest pain and SOB.? He was found to have a SPTX and pigtail was placed with near resolution.? CT was placed to WS last evening with a stable CXR in am showing residual trace left apical pneumothorax. ROS:? pt denies fever, chills, Chest pain,SOB, N/V, abdominal pain & calf pain.? He does state that he is beginning to cough up some yellow sputum.? He is Pulling > 2L ON IS. Physical Exam Vital Signs: Vital Signs: Last Vital Signs Temp 97.8 F 06/16/23 06:56 Pulse 82 06/16/23 08:17 Resp 18 06/16/23 08:17 BP 121/75 06/16/23 06:56 Pulse Ox 91 L 06/16/23 06:56 O2 Del Method Room Air 06/16/23 06:56 O2 Flow Rate 4 06/14/23 01:48 BMI result Body Mass Index 26.0 Const: General: cooperative and no acute distress HEENT: Other: N/CAT, EOMI Neck: Neck: Yes no lymphadenopathy Chest: Chest palpation & inspection: normal inspection of the chest Resp: Other: CT to waterseal with no air leak with cough or forceful exhalation and minimal drainage Effort & Inspection: normal respiratory effort, able to speak in complete sentences and symmetric chest movement Auscultation: clear to auscultation bilaterally Cardio: Jugular venous distension: no JVD Rate: regular rate Rhythm: regular rhythm GI: Auscultation: normal bowel sounds Skin: Other: venous stasis pattern in LE Neuro: Other: Grossly intact Psych: Appearance: grossly normal Procedures Date of Service Date of Service: 06/16/23 Progress Note: A&P Assessment and plan (1) Pneumothorax: Start date: 06/13/23 Status: Acute Plan Mr. Rhodes is a 67 y/o gentleman who presents with a left sided spontaneous ptx who had no recent trauma or fall but had been sitting on his couch coughing when the chest pain and SOB began. ? Rupture of bleb.? He sought treatment @ .? Near complete left ptx was found upon CXR.? Left 14 senegalese pigtail placed with near resolution.? Residual Trace left apical ptx remaining. There is minimal drainage and no air leak present with cough or forceful exhalation. Plan: CXR shows resolved Left Ptx with stable trace apical ptx. No airleak with cough or forceful exhalation. D/W Dr. Roth. CT removed per protocol. Pt tolerated well. Occlusive dressing applied that needs to remain in place X 48 hours or until Friday am. If becomes saturated needs to be reinforced and not changed. Pain management:?Tylenol 500 mg 1 q 8 hours as needed. COPD:? inhalers to limit wheezing and cough.? Has appointment with Dr. Hendricks tomorrow Tobacco abuse - discussed with patient that he needs to stop smoking. Smoking increases risk of reoccurence of spontaneuous PTX at which point surgical intervention will be required. OOB and ambute as tolerates. Pulmonary Rehab continue Incentive Spirometry X 2 weeks. Postoperative Patient Education - No heavy lifting > 10 pounds X 1 month -No flying in airplane for 1 month (patient has an upcoming trip in Sep) -No scuba diving ever - No smoking due to high risk of this occurring again. Time Spent With Patient Time: Total time managing care of this patient today __30__ minutes. Quality Stroke Does the patient have a stroke diagnosis?: No VTE Prior VTE?: Yes VTE Risk Level:: Medical - moderate - high VTE Device Contraindication: Treatment Not Indicated VTE Drug Contraindication: N/A - Med Ordered
[2023-06-16] MEDS: Heparin Sodium,Porcine 5,000 UNIT/ML VIAL 5000 UNIT SUBCUT (10:49)
[2023-06-16 11:31] VITALS: O2SAT 92
--- NOTE | 2023-06-16 12:00 | PM.DS ---
DS: Providers Provider Date of Service: 06/16/23 Date of admission: 06/14/23 00:03 Primary care physician: Randall Benton III, MD Consults: 06/14/23 00:02 Consult to Thoracic Surgery Routine Consulting Provider: [facility] Sur[facility] Reason for consultation: pneumothorax DS: Diagnosis Discharge Diagnosis (1) Pneumothorax: Status: Acute DS: Summary Hospital Course Hospital Course: History and physical as per admitting provider. This is a 67-year-old male with pertinent history of DVT on Eliquis, mixed hyperlipidemia, COPD not on home oxygen, tobacco use disorder who presents to the emergency department for evaluation of dyspnea and chest discomfort.? Patient states he had sudden onset of chest discomfort while he was watching television.? It was constant, nonradiating and without any relieving factors.? Patient called EMS and said he received aspirin and nitroglycerin with did not reduce the chest discomfort.? It was associated with dyspnea, worse with exertion.? Patient denies fever, chills, palpitations, abdominal pain, changes in urinary or bowel habits. In the emergency department, imaging with pneumothorax and chest tube was placed. 67-year-old male smoker treated for spontaneous pneumothorax in the setting of COPD, possibly a bleb. He was on chest to continuous suction -20 for 48 hours. Thoracic surgeon removed chest tube today. Patient has not been hypoxemic and his pain is relieved at this time. Discussed importance of smoking cessation, patient reports that he is going to quit smoking. He can be discharged home and should return to the ER if he suddenly experiences the same symptoms of shortness of breath. Hyperlipidemia. Continue statin History of DVT. Eliquis was on hold with chest tube placement. Restart Eliquis COPD. Continue home inhalers Tobacco use disorder. Offered nicotine replacement for discharge Time Spent with Patient Time attestation: Total time managing care of this patient today ____ minutes. Discharge coordination time: Greater than 30 minutes Quality: Safe Use of Opioids Does Pt have an Active Cancer Diagnosis on the Problem List?: No Quality: Stroke Does the patient have a stroke diagnosis?: No Physical Exam Vital Signs: Vital Signs: Last Vital Signs Temp 97.8 F 06/16/23 06:56 Pulse 82 06/16/23 08:17 Resp 18 06/16/23 08:17 BP 121/75 06/16/23 06:56 Pulse Ox 92 06/16/23 11:31 O2 Del Method Room Air 06/16/23 11:31 O2 Flow Rate 4 06/14/23 01:48 BMI result Body Mass Index 26.0 Appearing in no acute distress head is normocephalic atraumatic eyes pupils are PERRLA sclera is anicteric mouth throat mucous membranes are intact and moist neck is supple no lymphadenopathy, no JVD noted lung sounds are clear to auscultation heart regular rate rhythm, clear S1, S2 positive bowel sounds, abdomen is soft, nontender neuro patient is alert x3, no focal deficits Discharge Plan Discharge Anticipated Discharge Date/Time: 06/16/23 11:57 Patient Disposition: Home, Self-Care Discharge Diagnosis: Pneumothorax Referrals: Randall Benton III, MD [Primary Care Provider] - 1 Week Discharge Medications: New nicotine [Nicoderm CQ] 14 mg/24 hr patch 24 hour 1 patch transdermal DAILY Qty: 14 0RF Continued atorvastatin 20 mg tablet 20 mg PO DAILY albuterol sulfate [Ventolin HFA] 90 mcg/actuation HFA aerosol inhaler 2 puff INHALATION Q6H PRN (Reason: wheezing) metoprolol tartrate 25 mg tablet 25 mg PO BID Eliquis 5 mg tablet 5 mg PO BID Trelegy Ellipta 100-62.5-25 mcg blister with device 1 ea inhalation DAILY hydroxyzine pamoate 50 mg capsule 50 - 100 mg PO BEDTIME amitriptyline 10 mg tablet 10 - 20 mg PO BEDTIME PRN (Reason: insomnia) Discharge Orders: Discharge Order (Routine); Ordered 06/16/23 Ordered By: Dari Romero Diet: Advance to usual diet Activity on Discharge: As tolerated Stand Alone Forms: Patient Portal Discharge page Care Plan Goals: Quit smoking Health Concerns: Pneumothorax Plan of Treatment: Follow-up with primary care provider as needed Take all medications as prescribed May use Tylenol for pain Restart your Eliquis this evening Assessment: See discharge summary Patient Instructions: How to Stop Smoking (DC), Cigarette Smoking and Your Health (GEN)
--- NOTE | 2023-06-16 12:09 | MHC.CM.PN ---
pt is indepedent is dcd today home no servceis
== END 2023-06-16 13:13 | disposition home or self-care (01) | DRG 199 ==
LOC: HO.ED 22:41 → HO.EDOVER 06-14 00:08 → HO.S3 06-14 11:31
PROVIDERS: Admitting Provider Student in an Organized Health Care Education/Training Program; Emergency Provider Internal Medicine; PCP Internal Medicine; Visit Provider Nurse Practitioner Acute Care
DX: J93.11 Primary spontaneous pneumothorax (principal); J96.01 Acute respiratory failure with hypoxia; J98.2 Interstitial emphysema; F10.21 Alcohol dependence, in remission; E78.2 Mixed hyperlipidemia; F17.210 Nicotine dependence, cigarettes, uncomplicated; Z91.041 Radiographic dye allergy status; Z71.6 Tobacco abuse counseling; Z79.01 Long term (current) use of anticoagulants; Z79.899 Other long term (current) drug therapy
CPT/HCPCS: 36415; 71045; 71046; 80048; 80053; 84484; 85025; 93005; 94640; 94664; 99285; J1170; J1643; J1650

== ENCOUNTER → 2023-06-14 00:03 | Outpatient (BNV) | payer OTHER, SELFPAY | PROVIDERS: Admitting Provider Student in an Organized Health Care Education/Training Program; Emergency Provider Internal Medicine; PCP Internal Medicine; Visit Provider Student in an Organized Health Care Education/Training Program | DX: J93.9 Pneumothorax, unspecified (principal) | CPT/HCPCS: 99222; 99232; 99239; 99499 ==

== ENCOUNTER 2023-06-25 15:59 | Inpatient (IN) | payer OTHER, SELFPAY ==
[2023-06-25] VITALS (8 sets, daily range): BP systolic 109–153; BP diastolic 65–86; PULSE 63–84; RESP 16–22; TEMP 36.6–36.8; O2SAT 96–98; BMI 24.9
--- NOTE | ~2023-06-25 | XR_ITS ---
EXAMINATION: XR CHEST CLINICAL INFORMATION: Status post chest tube placement. COMPARISON: Portable chest performed at 4:03 PM TECHNIQUE: Frontal view of the chest was obtained. FINDINGS: Support devices: Interval placement of left pigtail chest tube. There has been reexpansion of the left lung status post placement of the left chest tube. There is a trace residual left pneumothorax. Mild subcutaneous emphysema is seen in the left lateral chest. The right lung is clear. XR/XR chest 1V IMPRESSION: Reexpansion of the left lung status post left chest tube placement with trace residual left pneumothorax.
--- NOTE | ~2023-06-25 | XR_ITS ---
EXAMINATION: XR CHEST CLINICAL INFORMATION: Reason for Exam s/p thorascopic blebectomy COMPARISON: Previous chest x-ray most recent from yesterday TECHNIQUE: Frontal view of the chest was obtained. FINDINGS: Endotracheal tube is been removed. The cardiac and mediastinal contours are stable. The lung volumes are low. There is bibasilar atelectasis or small infiltrates, left greater than right. Left chest tube unchanged in position. Small left apical pneumothorax similar to yesterday's exam. This measures maximum 1 cm at the left lung apex. Small bilateral pleural effusions. XR/XR chest 1V IMPRESSION: No change in small left apical pneumothorax from yesterday. Low lung volumes and bibasilar atelectasis or small infiltrates, left greater than right.
--- NOTE | ~2023-06-25 | XR_ITS ---
EXAMINATION: XR CHEST CLINICAL INFORMATION: Post chest tube removal COMPARISON: Radiograph from 06/27/2023 TECHNIQUE: Frontal view of the chest was obtained. FINDINGS: Stable trace left apical pneumothorax. Bilateral low lung volumes stable left lateral basilar infiltrate. Small pleural effusions bilaterally with subjacent atelectasis. Trachea is midline. Cardiomediastinal silhouette is stable. Osseous structures are intact. Soft tissues are unremarkable. XR/XR chest 1V IMPRESSION: 1. Stable trace left apical pneumothorax. 2. Bilateral low lung volumes stable left lateral basilar infiltrate. 3. Small pleural effusions bilaterally with subjacent atelectasis.
--- NOTE | ~2023-06-25 | XR_ITS ---
EXAMINATION: XR CHEST CLINICAL INFORMATION: Status post thorascopic blebectomy COMPARISON: 06/26/2020 0720 and prior TECHNIQUE: Frontal view of the chest was obtained. FINDINGS: An endotracheal tube is in the trachea, terminating just below the thoracic inlet. A left pleural drainage catheter has been replaced with a chest tube extending toward the apex. There is a small apical pneumothorax. There is lateral left pleural thickening and probable small effusion. There is atelectasis at the left lung base. Linear atelectasis is seen in the mid and lower right lung. The right pleural space is clear. The mediastinum is stable. XR/XR chest 1V IMPRESSION: Status post endotracheal intubation. Postsurgical changes in the left hemithorax with chest tube in place and small left apical pneumothorax. Left basilar atelectasis and probable small dependent left pleural effusion. Linear atelectasis in the lower right lung.
--- NOTE | ~2023-06-25 | XR_ITS ---
EXAMINATION: XR CHEST CLINICAL INFORMATION: Post chest tube removal COMPARISON: Chest x-ray from earlier the same day TECHNIQUE: Frontal view of the chest was obtained. FINDINGS: The left chest tube is been removed. There is a small left apical pneumothorax not appreciably changed from earlier exam. This measures 6 mm in maximum thickness at the left lung apex. The cardiac and mediastinal contours are stable. The lung volumes are low. There is bibasilar atelectasis or small infiltrates, left greater than right. There may be small bilateral pleural effusions. XR/XR chest 1V IMPRESSION: Stable small left apical pneumothorax post chest tube removal. Low lung volumes and bibasilar atelectasis or small infiltrates, left greater than right. Probable small bilateral pleural effusions.
--- NOTE | ~2023-06-25 | XR_ITS ---
EXAMINATION: XR CHEST CLINICAL INFORMATION: Pneumothorax. COMPARISON: 06/25/2023 TECHNIQUE: Frontal view of the chest was obtained. FINDINGS: The lungs are hypoexpanded. A pigtail chest tube is present projecting over the left hemithorax. No sizable pneumothorax is present. There is decreased subcutaneous emphysema as well as improved consolidation at the left lung base. Bibasilar atelectasis. Cardiac silhouette is unchanged. XR/XR chest 1V IMPRESSION: No sizable pneumothorax is present with left pigtail chest tube in place. Decreased subcutaneous emphysema and improved consolidation at the left lung base.
--- NOTE | ~2023-06-25 | CT_ITS ---
EXAMINATION: CT CHEST WITHOUT CONTRAST CLINICAL INFORMATION: Possible infiltrate COMPARISON: Previous chest x-ray most recent from yesterday TECHNIQUE: Multidetector volumetric CT imaging of the chest was done. Axial MIP volume rendering provided. Sagittal and coronal reformatted images were obtained. This CT examination was performed using dose optimization techniques as appropriate, variously including the following: *Automated exposure control *Adjustment of mA and/or kV according to patient size (this includes techniques or standardized protocols for targeted exams where dose is matched to indication/reason for exam; i.e. extremities or head) *Use of iterative reconstruction technique DLP: 326 mGy-cm FINDINGS: LUNGS: Emphysema. Surgical staple line at the left lung apex. Patchy groundglass attenuation in the left upper lobe. Denser atelectasis and/or consolidation with air bronchograms in both lower lobes and right middle lobe, greatest in the right lower lobe. MEDIASTINUM: Small amount of pneumomediastinum. Normal heart size. No pericardial effusion. No enlarged hilar or mediastinal lymph nodes. CORONARY ARTERY CALCIFICATION: None visualized on this study. PLEURA: Small left hydropneumothorax. AXILLA: Left lower neck and chest wall subcutaneous emphysema. UPPER ABDOMEN: The gallbladder has been removed. OSSEOUS STRUCTURES: Old T8 vertebral body compression fracture. CT/CT chest wo IV con IMPRESSION: Bilateral lower lobe atelectasis and consolidation/pneumonia, right greater than left. Also atelectasis or small infiltrate in the right middle lobe. Small left hydropneumothorax. Small amount of left chest wall subcutaneous emphysema. Small amount of pneumomediastinum. Fleischner guidelines were followed.
--- NOTE | ~2023-06-25 | XR_ITS ---
EXAMINATION: XR CHEST CLINICAL INFORMATION: Shortness of breath. COMPARISON: 06/16/2023 chest radiograph. TECHNIQUE: Frontal view of the chest was obtained. FINDINGS: Support devices: Interval removal of left pigtail chest tube. There is a large left pneumothorax with medial collapse of the left lung. The right lung is clear. The heart and mediastinal structures are unremarkable without significant shift. XR/XR chest 1V IMPRESSION: Large left pneumothorax status post left chest tube removal without significant cardiomediastinal shift.
--- NOTE | 2023-06-25 16:13 | ED.SOB ---
HPI - SOB/Dyspnea General Chief Complaint: Dyspnea Stated Complaint: Worsening SOB since this morning Time Seen by Provider: 06/25/23 16:05 Source: patient, EMS and old records reviewed Mode of arrival: EMS Limitations: no limitations History of Present Illness HPI Narrative: 67 yo male hx of DVT on eliquis, HLD, COPD, recent spontaneous PTX L side s/p pigtail 06/13 with removal on 06/16 notes today this afternoon he started to feel short of breath his workforce management consultant through [facility] did CXR and referred him to ED after telling him he again had large PTX. He denies event today - trauma coughing fevers or any issues. He states he just feels short of breath. MD elicited complaint: shortness of breath Pertinent past history: COPD and other (PTX) Onset (ago): hour(s) (few) Context: recent illness Timing: constant Severity: moderate Exacerbating factors: exertion Relieving factors: oxygen and rest Known history of: COPD Associated symptoms: denies other symptoms Treatment prior to arrival: none Related Data Home Medications Medication Instructions Recorded Confirmed albuterol sulfate 90 mcg/actuation 2 puff inhalation Q6H PRN wheezing 06/13/23 06/25/23 aerosol inhaler (Ventolin HFA) apixaban 5 mg tablet (Eliquis) 5 mg PO BID 06/13/23 06/25/23 atorvastatin 20 mg tablet 20 mg PO DAILY 06/13/23 06/25/23 fluticasone fur. 100 mcg-umeclid 1 ea inhalation DAILY 06/13/23 06/25/23 62.5 mcg-vilant 25 mcg inhalat.powder (Trelegy Ellipta) metoprolol tartrate 25 mg tablet 25 mg PO BID 06/13/23 06/25/23 hydroxyzine pamoate 50 mg capsule 100 mg PO BEDTIME 06/14/23 06/25/23 nicotine 14 mg/24 hr daily 1 patch transdermal DAILY PRN 06/25/23 06/25/23 transdermal patch (Nicoderm CQ) Nicotine Cravings Allergies Allergy/AdvReac Type Severity Reaction Status Date / Time Iodinated Contrast Media Allergy Hives Verified 06/25/23 16:22 [Contrast Dye] Review of Systems Review of Systems: Constitutional : No Fever, No Chills Cardiovascular : No Chest Pain, positive SOB, No Orthopnea, no Edema Respiratory : No Cough, No Sputum, No Wheezing, positive dyspnea Gastrointestinal : No Nausea, No Vomiting, No Diarrhea, No abdominal Pain, No Hematochezia, No Melena Genitourinary : No Dysuria, No Urinary Frequency, No Hematuria Musculoskeletal : No joint pain, No Myalgias Skin : No Skin Lesions, No rash Neuro : No Weakness, No Numbness, No Dizziness, No Headache Psych : No Anxiety/Panic, No Depression All other systems reviewed and are negative [facility] Past Medical History Attestation statement: The following information was validated with the patient. Medical History COPD (chronic obstructive pulmonary disease) History of deep vein thrombosis History of hepatitis C Mixed hyperlipidemia On anticoagulant therapy Protein C deficiency Tobacco abuse Surgical History History of chest tube placement History of cholecystectomy History of ERCP History of surgery on lower extremity Family History Family History Father Oral cancer Mother Stroke Social History Social History Household Members: None Housing: Apartment Do you presently have visiting nurse or other home services: Yes Alcohol intake: never Patient Tobacco Use Status: Former Tobacco user Quit Date: 06/13/23 Tobacco use type: Cigarette Cigarettes Per Day: -3 Second Hand Smoke Exposure: No Advance Directives Date on File: 06/17/23 service: No Physical Exam Vital Signs: Vital Signs: Last Vital Signs Temp 97.8 F 06/25/23 20:50 Pulse 70 06/25/23 20:50 Resp 16 06/25/23 20:50 BP 153/86 H 06/25/23 20:50 Pulse Ox 97 06/25/23 20:50 O2 Del Method Room Air 06/25/23 20:50 O2 Flow Rate 2 06/25/23 18:51 Oxygen Flow Rate 6 06/25/23 16:16 BMI result Body Mass Index 24.9 Appearance: Alert. Oriented X3. Mild acute distress. Eyes: Pupils equal, round and reactive to light. ENT: Pharynx normal. Neck: Normal inspection. Neck supple. CVS: Normal heart rate and rhythm. Pulses normal. Respiratory: No respiratory distress. Breath sounds absent L side - chest wall site left side healed Abdomen: Soft and nontender. Skin: Skin warm and dry. Normal skin color. Normal skin turgor. Extremities: No lower extremity edema. No calf ttp Neuro: Oriented X 3. No motor deficit. No sensory deficit. Medications Administered Generic Name Dose Route Start Last Admin Trade Name Abimael PRN Reason Stop Dose Admin Hydroxyzine HCl 100 mg 06/25/23 21:00 06/25/23 21:18 Hydroxyzine Hcl 50 Mg Tablet PO 100 mg BEDTIME ALPHONSE Administration Sodium Chloride 1,000 mls @ 100 mls/hr 06/25/23 18:30 06/25/23 18:32 Ns IVCONT 100 mls/hr .Q10H ALPHONSE Administration Melatonin 6 mg 06/25/23 19:07 06/25/23 21:34 Melatonin 3 Mg Tablet PO 6 mg BEDTIME PRN Administration Insomnia Metoprolol Tartrate 25 mg 06/25/23 21:00 06/25/23 21:18 Metoprolol Tartrate 25 Mg Tablet PO 25 mg BID ALPHONSE Administration Protocol Oxycodone HCl 5 mg 06/25/23 19:15 06/25/23 21:18 Oxycodone Hcl Immed Release 5 Mg Tablet PO 5 mg Q4H PRN Administration Pain, Moderate(Pain Scale 4-6) Sodium Chloride 3 ml 06/26/23 00:00 06/25/23 23:15 0.9 % Sodium Chloride Flush 3 Ml Syringe IVFLUSH Not Given QSHIFT ALPHONSE Discontinued Medications Generic Name Dose Route Start Last Admin Trade Name Abimael PRN Reason Stop Dose Admin Acetaminophen 650 mg 06/25/23 18:16 06/25/23 18:31 Acetaminophen 325 Mg Tablet PO 06/25/23 18:17 650 mg ONCE ONE Administration Fentanyl 50 mcg 06/25/23 16:11 06/25/23 17:24 Fentanyl Citrate/Pf 100 Mcg/2 Ml Vial IVPUSH 06/25/23 16:12 50 mcg ONCE ONE Administration Protocol Hydromorphone HCl 1 mg 06/26/23 00:09 06/26/23 00:34 Hydromorphone Hcl 1 Mg/Ml Syringe IVPUSH 06/26/23 00:10 1 mg ONCE ONE Administration Protocol Lidocaine HCl 10 ml 06/25/23 16:11 06/25/23 17:25 Lidocaine Hcl 1 % Mpf 5 Ml Vial SUBCUT 06/25/23 16:12 10 ml ONCE ONE Administration Morphine Sulfate 4 mg 06/25/23 18:16 06/25/23 18:32 Morphine Sulfate 4 Mg/Ml Cartridge IVPUSH 06/25/23 18:17 4 mg ONCE ONE Administration Protocol Morphine Sulfate 4 mg 06/25/23 22:48 06/25/23 23:21 Morphine Sulfate 4 Mg/Ml Cartridge IVPUSH 06/25/23 22:49 4 mg ONCE ONE Administration Protocol Medical Decision Making Medical Decision Making MDM Narrative: 67 yo male hx of DVT on eliquis, HLD, COPD, recent spontaneous PTX L side s/p pigtail 06/13 brought to ED after outside workforce management consultant told him he had another left sided spontaneous PTX today. He notes he started to feel short of breath a few hours ago - no trauma, coughing, breath holding that he can think of. At this time I have contacted thoracic surgery, will place pigtail and admit patient. Differential Diagnosis Differential Diagnoses: The differential diagnosis associated with the presentation includes PTX, effusion, COPD Admission/Observation Consideration of admission/observation: Escalation of care including admission/observation considered needs admission for monitoring of PTX Consult Healthcare Provider Management of the patient was discussed with: [facility] Advocate thoracic PA Dante aware - will consult in AM Lab Data [facility] Lab Attestation statement: I reviewed the patient's lab results. 06/25/23 17:51 06/25/23 17:51 Labs: Lab Results 06/25/23 06/25/23 06/25/23 Range/Units 17:51 17:51 17:51 WBC 6.8 (4.8-10.8) X10*3/uL RBC 5.02 (4.60-5.80) X10*6/uL Hgb 15.7 (14.0-18.0) g/dl Hct 45.6 (42.0-52.0) % MCV 90.8 (80.0-98.0) fL MCH 31.3 (27.0-33.0) pg MCHC 34.4 (31.0-36.0) g/dl RDW 12.6 (11.0-16.0) % Plt Count 245 D (160-400) X10*3/uL MPV 8.8 L (9.4-12.4) fL Immature Gran % (Auto) 0.4 (0.0-0.4) % Neut % (Auto) 62.7 (45-73) % Lymph % (Auto) 22.2 (20-40) % [place] % (Auto) 9.7 (2-11) % Eos % (Auto) 4.6 H (0-4) % Baso % (Auto) 0.4 (0-2) % Lymph # (Auto) 1.5 (1.2-4.9) X10*3/uL [place] # (Auto) 0.7 (0.1-1.2) X10*3/uL Eos # (Auto) 0.3 (0.0-0.4) X10*3/uL Baso # (Auto) 0.0 (0.0-0.2) X10*3/uL Abs Immat Gran (auto) 0.03 (0.00-0.03) X10*3/uL Absolute Neuts (auto) 4.3 (2.0-8.3) x10*3/uL Absolute Nucleated RBC 0.000 (0.0-0.012) X10*3/uL Nucleated RBC % (auto) 0.0 (0.0-0.2) /100WBC PT 14.0 H (11.1-13.3) SEC INR 1.2 H (0.9-1.1) Sodium 142 (135-145) mmol/L Potassium 4.7 (3.3-5.1) mmol/L Chloride 107 (96-108) mmol/L Carbon Dioxide 29 (22-29) mmol/L Anion Gap 11 L (12-20) BUN 20 H (9-16) mg/dL Creatinine 1.46 H (0.5-1.4) mg/dL Estim Creat Clear Calc 50.4 Estimated GFR 48 Random Glucose 104 (60-115) mg/dL Calcium 10.3 H (8.4-10.2) mg/dL COVID-19 (HENRRY) (Negative) COVID-19 Clin Com 06/25/23 Range/Units 17:51 WBC (4.8-10.8) X10*3/uL RBC (4.60-5.80) X10*6/uL Hgb (14.0-18.0) g/dl Hct (42.0-52.0) % MCV (80.0-98.0) fL MCH (27.0-33.0) pg MCHC (31.0-36.0) g/dl RDW (11.0-16.0) % Plt Count (160-400) X10*3/uL MPV (9.4-12.4) fL Immature Gran % (Auto) (0.0-0.4) % Neut % (Auto) (45-73) % Lymph % (Auto) (20-40) % [place] % (Auto) (2-11) % Eos % (Auto) (0-4) % Baso % (Auto) (0-2) % Lymph # (Auto) (1.2-4.9) X10*3/uL [place] # (Auto) (0.1-1.2) X10*3/uL Eos # (Auto) (0.0-0.4) X10*3/uL Baso # (Auto) (0.0-0.2) X10*3/uL Abs Immat Gran (auto) (0.00-0.03) X10*3/uL Absolute Neuts (auto) (2.0-8.3) x10*3/uL Absolute Nucleated RBC (0.0-0.012) X10*3/uL Nucleated RBC % (auto) (0.0-0.2) /100WBC PT (11.1-13.3) SEC INR (0.9-1.1) Sodium (135-145) mmol/L Potassium (3.3-5.1) mmol/L Chloride (96-108) mmol/L Carbon Dioxide (22-29) mmol/L Anion Gap (12-20) BUN (9-16) mg/dL Creatinine (0.5-1.4) mg/dL Estim Creat Clear Calc Estimated GFR Random Glucose (60-115) mg/dL Calcium (8.4-10.2) mg/dL COVID-19 (HENRRY) Negative (Negative) COVID-19 Clin Com See Note Independent Interpretation I performed an independent interpretation of an: Plain X-Ray (large left PTX) Radiology Impression Discussion of test interpretation with radiology: I discussed test interpretation with the radiologist and I have reviewed the radiologist's reading. Independent Historian Clinical information obtained from an independent historian. History obtained from or confirmed by: EMS External Record Review External record reviewed: Inpatient record Procedures Chest Tube Chest Tube 1: Chest Tube Location: left and mid axillary line Size of Tube (cm): 14 Chest Tube Prep: Yes sterile drapes applied and other Local Anesthetic: lidocaine 1% Amount of anesthesia used (mL): 10 Incision Made With: other (phill kit 18G) Post Procedure: sutured to skin and sterile dressing applied Tube Drainage: none Post Procedure CXR?: Yes Patient Tolerated Procedure: Yes Critical Care Time Critical Care Time Critical Care Time: Yes Total Critical Care Time: 35 Attestation: emergent placement of chest tube and consultation with rapid bedside assessment for large pneumothorax and short of breath patient I attest to this time spent taking care of the patient Discharge Plan Discharge Clinical Impression: Spontaneous pneumothorax Patient Disposition: Admitted As Inpatient Interventions: Admission Worksheet (ED) Last Done: 06/25/23 21:01 Discharge Date/Time: 06/25/23 21:03
--- NOTE | 2023-06-25 16:45 | PC.NURSE ---
Addendum entered by Kiki Eli 06/25/23 18:14: verbal order per , wall suction at 20 MMHG. Original Note: at bedside. pt a&ox3. chest tube being placed , pt tolerating procedure well. vss. pigtail chest tube placed in the left chest.
[2023-06-25] MEDS: fentaNYL citrate/PF 100 MCG/2 ML VIAL 50 MCG IVPUSH (17:24)
[2023-06-25] MEDS: Lidocaine HCl 1 % MPF 5 ML VIAL 10 ML SUBCUT (17:25)
[2023-06-25 18:00] LABS: MANUAL DIFF FLAG NO
--- NOTE | 2023-06-25 18:10 | PC.NURSE ---
pt a&ox3. respirations even and unlabored. pt reporting left chest pain due to chest tube procedure. provider aware. vss. normal sinus on tele.
[2023-06-25 18:12] LABS: INTERNATIONAL NORM RATIO 1.2 (0.9-1.1)
[2023-06-25 18:19] LABS: Anion Gap 11 (12-20); Blood Urea Nitrogen 20 mg/dL (9-16); Calcium 10.3 mg/dL (8.4-10.2); Carbon Dioxide 29 mmol/L (22-29); Chloride 107 mmol/L (96-108); Creatinine Clr Calc Pharmacy 50.4; Estimated Glomerular Filt Rate 48; Glucose Random 104 mg/dL (60-115); Potassium 4.7 mmol/L (3.3-5.1); Sodium 142 mmol/L (135-145)
[2023-06-25 18:31] LABS: Basophils Percent Auto 0.4 % (0-2); Eosinophils Absolute Auto 0.3 X10*3/uL (0.0-0.4); Eosinophils Percent Auto 4.6 % (0-4); Hematocrit 45.6 % (42.0-52.0); Hemoglobin 15.7 g/dl (14.0-18.0); Imm Gran Abs Auto 0.03 X10*3/uL (0.00-0.03); Imm Gran Pct Auto 0.4 % (0.0-0.4); Lymphocytes Absolute Auto 1.5 X10*3/uL (1.2-4.9); Lymphocytes Percent Auto 22.2 % (20-40); Mean Corpuscular HGB Conc 34.4 g/dl (31.0-36.0); Mean Corpuscular Hemoglobin 31.3 pg (27.0-33.0); Mean Corpuscular Volume 90.8 fL (80.0-98.0); Mean Platelet Volume 8.8 fL (9.4-12.4); Monocytes Absolute Auto 0.7 X10*3/uL (0.1-1.2); Monocytes Percent Auto 9.7 % (2-11); Neutrophils Absolute Auto 4.3 x10*3/uL (2.0-8.3); Neutrophils Percent Auto 62.7 % (45-73); Platelet Count 245 X10*3/uL (160-400); Red Blood Count 5.02 X10*6/uL (4.60-5.80); Red Cell Distribution Width 12.6 % (11.0-16.0); White Blood Count 6.8 X10*3/uL (4.8-10.8)
[2023-06-25] MEDS: Acetaminophen 325 MG TABLET 650 MG PO (18:31)
[2023-06-25 18:32] LABS: COVID-19 Test Negative (Negative); IDNOW Serial# 6674DD1D
[2023-06-25] MEDS: Morphine Sulfate 4 MG/ML CARTRIDGE IVPUSH ×2 (18:32→23:21)
[2023-06-25] MEDS: 0.9 % Sodium Chloride 1,000 ML 100 ML IVCONT (18:32)
--- NOTE | 2023-06-25 19:09 | P.HPHOSP_ITS ---
History of Present Illness Date of Service: 06/25/23 Chief Complaint: Dyspnea This is a 67-year-old male with pertinent history of DVT on Eliquis, mixed hyperlipidemia, COPD not on home oxygen, mood disorder who presents to the emergency department for evaluation of dyspnea. Patient was recently admitted on 06/14 with spontaneous pneumothorax when chest tube was placed. Chest tube was removed on 06/16 and patient was discharged home. He had an appointment with pulmonology outpatient. Repeat chest x-ray revealed left-sided pneumothorax and he was sent to the ER. Does endorse dyspnea, worse with exertion. Denies chest discomfort or palpitations. No fever, chills, abdominal pain, changes in urinary or bowel habits. Patient states he quit smoking on 06/14 during previous admission. In the emergency department, chest tube was placed and thoracic surgery was consulted Review of Systems Constitutional: Constitutional: Reports fatigue Cardiovascular: Cardiovascular: Reports no additional cardiovascular complaints and Reports dyspnea on exertion Respiratory: Respiratory: Reports dyspnea on exertion Gastrointestinal: Gastrointestinal: Reports no additional gastrointestinal complaints Genitourinary: Genitourinary: Reports no additional male genitourinary complaints Musculoskeletal: Musculoskeletal: Reports no additional musculoskeletal complaints Endocrine: Endocrine: Reports fatigue [facility] Medical History COPD (chronic obstructive pulmonary disease) History of deep vein thrombosis History of hepatitis C Mixed hyperlipidemia On anticoagulant therapy Protein C deficiency Tobacco abuse Family History Father Oral cancer Mother Stroke Surgical History History of chest tube placement History of cholecystectomy History of ERCP History of surgery on lower extremity Social History Household Members: None Housing: Apartment Do you presently have visiting nurse or other home services: Yes ([facility]) Alcohol intake: never Patient Tobacco Use Status: Current everyday Tobacco user Tobacco use type: Cigarette Cigarettes Per Day: 3 Smoked in Last 30 Days: Yes Second Hand Smoke Exposure: No Use of substances other than those prescribed or required for medical reasons: No Advance Directives: Yes Advance Directives on File: Yes Advance Directives Date on File: 06/17/23 service: No Meds Allergies Allergy/AdvReac Type Severity Reaction Status Date / Time Iodinated Contrast Media Allergy Hives Verified 06/25/23 16:22 [Contrast Dye] Active Medications: Current Medications Sodium Chloride (Ns) 1,000 mls @ 100 mls/hr IVCONT .Q10H ALPHONSE Last Admin: 06/25/23 18:32 Dose: 100 mls/hr Home Medications Medication Instructions Recorded Confirmed Last Taken Type amitriptyline 10 mg tablet 10 - 20 mg PO BEDTIME PRN insomnia 08/08/22 06/14/23 Unknown History albuterol sulfate 90 mcg/actuation 2 puff inhalation Q6H PRN wheezing 06/13/23 06/13/23 Unknown History aerosol inhaler (Ventolin HFA) apixaban 5 mg tablet (Eliquis) 5 mg PO BID 06/13/23 06/13/23 Unknown History atorvastatin 20 mg tablet 20 mg PO DAILY 06/13/23 06/13/23 Unknown History fluticasone fur. 100 mcg-umeclid 1 ea inhalation DAILY 06/13/23 06/13/23 Unknown History 62.5 mcg-vilant 25 mcg inhalat.powder (Trelegy Ellipta) metoprolol tartrate 25 mg tablet 25 mg PO BID 06/13/23 06/13/23 Unknown History hydroxyzine pamoate 50 mg capsule 50 - 100 mg PO BEDTIME 06/14/23 06/14/23 Unknown History fluticasone propionate 50 1 spray intranasal DAILY PRN 06/25/23 Unknown History mcg/actuation nasal Allergy Symptoms spray,suspension Physical Exam Vital Signs and Narrative: Vital Signs: Last Vital Signs Temp 98.2 F 06/25/23 16:16 Pulse 67 06/25/23 18:51 Resp 16 06/25/23 18:51 BP 125/83 06/25/23 18:51 Pulse Ox 97 06/25/23 18:51 O2 Del Method Nasal Cannula 06/25/23 18:51 O2 Flow Rate 2 06/25/23 18:51 Oxygen Flow Rate 6 06/25/23 16:16 BMI result Body Mass Index 24.9 Middle-aged male lying in bed in mild distress on supplemental oxygen Neck supple, no JVD Regular rate and rhythm, S1-S2 heard Reduced left-sided breath sounds, chest tube present to suction Abdomen soft nontender, no guarding, no rigidity Patient is awake, alert and oriented to self, place, time and person ; no focal motor deficit Psych: Normal mood No pedal edema Results Labs 06/25/23 17:51 06/25/23 17:51 Labs: Laboratory Results - last 24 hr 06/25/23 06/25/23 06/25/23 17:51 17:51 17:51 MCV 90.8 MCH 31.3 MCHC 34.4 RDW 12.6 Plt Count 245 D MPV 8.8 L Immature Gran % (Auto) 0.4 Neut % (Auto) 62.7 Lymph % (Auto) 22.2 [place] % (Auto) 9.7 Eos % (Auto) 4.6 H Baso % (Auto) 0.4 Lymph # (Auto) 1.5 [place] # (Auto) 0.7 Eos # (Auto) 0.3 Baso # (Auto) 0.0 Abs Immat Gran (auto) 0.03 Absolute Neuts (auto) 4.3 Absolute Nucleated RBC 0.000 Nucleated RBC % (auto) 0.0 PT 14.0 H INR 1.2 H Anion Gap 11 L Estim Creat Clear Calc 50.4 Estimated GFR 48 Random Glucose 104 Calcium 10.3 H COVID-19 (HENRRY) COVID-19 Clin Com 06/25/23 17:51 MCV MCH MCHC RDW Plt Count MPV Immature Gran % (Auto) Neut % (Auto) Lymph % (Auto) [place] % (Auto) Eos % (Auto) Baso % (Auto) Lymph # (Auto) [place] # (Auto) Eos # (Auto) Baso # (Auto) Abs Immat Gran (auto) Absolute Neuts (auto) Absolute Nucleated RBC Nucleated RBC % (auto) PT INR Anion Gap Estim Creat Clear Calc Estimated GFR Random Glucose Calcium COVID-19 (HENRRY) Negative COVID-19 Clin Com See Note Imaging Radiologist's Impressions: Impressions Chest X-Ray 06/25/23 16:13 IMPRESSION: Large left pneumothorax status post left chest tube removal without significant cardiomediastinal shift. Chest X-Ray 06/25/23 17:18 IMPRESSION: Reexpansion of the left lung status post left chest tube placement with trace residual left pneumothorax. Assessment and Plan (1) Spontaneous pneumothorax: Status: Acute Plan This is a 67-year-old male with pertinent history of DVT on Eliquis, mixed hyperlipidemia, COPD not on home oxygen, mood disorder who presents to the emergency department for evaluation of dyspnea. #.? Spontaneous pneumothorax, secondary in the setting of COPD.?Continue chest tube to suction. Initiated incentive spirometry. Repeat chest x-ray in a.m..? Consulted thoracic surgery, appreciate assistance #.? Acute hypoxemic respiratory failure in the setting of above.? Monitor oxygen saturation and wean as tolerated.? Maintain oxygen saturation greater than 88% #.? Mixed hyperlipidemia.? On statin #.? DVT: On Eliquis #.? COPD.? Continue home inhalers #.? Tobacco use disorder.? Patient's states he quit about 10 days ago. Does not want nicotine patch #. Chronic kidney disease. Creatinine at baseline. Continue to monitor and avoid nephrotoxins Med rec pending DVT prophylaxis:? Eliquis on hold in setting of CT tube Full code Admit as inpatient and will require two night minimum hospital stay for supplemental oxygen.? Specialist consult pending Time Spent With Patient Time: Total time managing care of this patient today ____ minutes. Quality Stroke Does the patient have a stroke diagnosis?: No VTE Prior VTE?: No VTE Risk Level:: Medical - moderate - high VTE Device Contraindication: Treatment Not Indicated VTE Drug Contraindication: N/A - Med Ordered
--- NOTE | 2023-06-25 19:22 | PHA.MEDREC ---
Pharmacy Consult ? Medication Reconciliation Pharmacy has completed the medication reconciliation. Patient confirmed medications. Reports he does not take amitriptyline at home. Maggi Wilson, PharmD
--- NOTE | 2023-06-25 20:59 | PC.NURSE ---
this rn assumed care of pt @ 1900. report given to renny castano. this rn present for transport of pt with chest tube. beside report given upon arrival at bed assignment. pt calm and cooperative
[2023-06-25] MEDS: hydrOXYzine HCL 50 MG TABLET 100 MG PO (21:18)
[2023-06-25] MEDS: Metoprolol Tartrate 25 MG TABLET PO (21:18)
[2023-06-25] MEDS: oxyCODONE HCl Immed Release 5 MG TABLET PO (21:18)
[2023-06-25] MEDS: Melatonin 3 MG TABLET 6 MG PO (21:34)
[2023-06-26] VITALS (23 sets, daily range): BP systolic 98–135; BP diastolic 59–71; PULSE 62–121; RESP 7–33; TEMP 35.1–36.9; O2SAT 89–100
[2023-06-26] MEDS: HYDROmorphone HCl 1 MG/ML SYRINGE IVPUSH ×2 (00:34→05:54)
--- NOTE | 2023-06-26 02:16 | PC.NURSE ---
Addendum entered by Mikala Mckeon RN 06/26/23 02:21: pt in room 376. Dr. Castellano called for pt coumadin to be held and NPO at midnight for procedure in the [facility], however there is no order for npo. Dr. Ruiz was notified, he responded ok. Original Note: Pt in room 376 was given PRN pain med morphine at 2120, pt is still complaining of severe pain, pt said that the PRN oxycodone was not effective, pt asked for dilaudid. Dr. Ruiz was notified. Dr. Ruiz sent in order for dilaudid.
[2023-06-26] MEDS: oxyCODONE HCl Immed Release 5 MG TABLET PO (03:56)
[2023-06-26] MEDS: Acetaminophen 325 MG TABLET 650 MG PO (03:56)
[2023-06-26] MEDS: 0.9 % Sodium Chloride 1,000 ML 100 ML IVCONT (04:01)
[2023-06-26 05:53] LABS: MANUAL DIFF FLAG NO
[2023-06-26 05:59] LABS: Basophils Percent Auto 0.4 % (0-2); Eosinophils Absolute Auto 0.4 X10*3/uL (0.0-0.4); Eosinophils Percent Auto 5.3 % (0-4); Hemoglobin 15.3 g/dl (14.0-18.0); Imm Gran Abs Auto 0.02 X10*3/uL (0.00-0.03); Imm Gran Pct Auto 0.3 % (0.0-0.4); Lymphocytes Absolute Auto 1.7 X10*3/uL (1.2-4.9); Lymphocytes Percent Auto 23.2 % (20-40); Mean Corpuscular Hemoglobin 31.2 pg (27.0-33.0); Mean Corpuscular Volume 91.6 fL (80.0-98.0); Mean Platelet Volume 8.8 fL (9.4-12.4); Monocytes Absolute Auto 0.6 X10*3/uL (0.1-1.2); Monocytes Percent Auto 8.8 % (2-11); Neutrophils Absolute Auto 4.5 x10*3/uL (2.0-8.3); Platelet Count 216 X10*3/uL (160-400); Red Blood Count 4.91 X10*6/uL (4.60-5.80); Red Cell Distribution Width 12.6 % (11.0-16.0); White Blood Count 7.2 X10*3/uL (4.8-10.8)
[2023-06-26 06:11] LABS: Anion Gap 11 (12-20); Blood Urea Nitrogen 18 mg/dL (9-16); Calcium 9.5 mg/dL (8.4-10.2); Carbon Dioxide 22 mmol/L (22-29); Chloride 109 mmol/L (96-108); Estimated Glomerular Filt Rate > 60; Glucose Random 98 mg/dL (60-115); Potassium 4.3 mmol/L (3.3-5.1); Sodium 138 mmol/L (135-145)
--- NOTE | 2023-06-26 07:14 | HO.THORCON_ITS ---
History of Present Illness Consult details Consult date: 06/26/23 Narrative: Patient is a 67-year-old male presents here with a recurrent ipsilateral left pneumothorax. Approximately 2 weeks ago he had his 1st episode of pneumothorax were treated conservatively with tube thoracostomy. He now he presents with similar symptoms and was found to have a very large left pneumothorax requiring another chest tube to be placed. Patient has a very significant smoking history. Chart was reviewed and patient evaluated. Most noteworthy for COPD, protein C deficiency with prothrombotic state and history of DVT for which he is on Eliquis. [facility] Past Medical History Medical History COPD (chronic obstructive pulmonary disease) History of deep vein thrombosis History of hepatitis C Mixed hyperlipidemia On anticoagulant therapy Protein C deficiency Tobacco abuse Family History Family History Father Oral cancer Mother Stroke Surgical History Surgical History History of chest tube placement History of cholecystectomy History of ERCP History of surgery on lower extremity Social History Social History Household Members: None Housing: Apartment Do you presently have visiting nurse or other home services: Yes Alcohol intake: never Patient Tobacco Use Status: Former Tobacco user Quit Date: 06/13/23 Tobacco use type: Cigarette Cigarettes Per Day: -3 Second Hand Smoke Exposure: No Advance Directives Date on File: 06/17/23 service: No Meds Allergies Allergy/AdvReac Type Severity Reaction Status Date / Time Iodinated Contrast Media Allergy Hives Verified 06/25/23 16:22 [Contrast Dye] Active Medications: Current Medications Acetaminophen (Acetaminophen 325 Mg Tablet) 650 mg PO Q6H PRN PRN Reason: Pain, Mild (Pain Scale 1-3) Last Admin: 06/26/23 03:56 Dose: 650 mg Atorvastatin Calcium (Atorvastatin Calcium 20 Mg Tablet) 20 mg PO DAILY [facility] Fluticasone/Umeclidinium/Vilanterol (Fluticasone/Umeclidinium/Vilanterol 100/62.5/25 Blst.W.Dev) 1 puff INHALE RDAILY [facility] Hydroxyzine HCl (Hydroxyzine Hcl 50 Mg Tablet) 100 mg PO BEDTIME [facility] Last Admin: 06/25/23 21:18 Dose: 100 mg Sodium Chloride (Ns) 1,000 mls @ 100 mls/hr IVCONT .Q10H [facility] Last Admin: 06/26/23 04:01 Dose: 100 mls/hr Prothrombin Complex Concent ( Human) 2,000 unit/ IV Miscellaneous Supplies 80 mls @ 480 mls/hr IV .Q10M ONE Stop: 06/26/23 09:09 Melatonin (Melatonin 3 Mg Tablet) 6 mg PO BEDTIME PRN PRN Reason: Insomnia Last Admin: 06/25/23 21:34 Dose: 6 mg Metoprolol Tartrate (Metoprolol Tartrate 25 Mg Tablet) 25 mg PO BID [facility]; Protocol Last Admin: 06/25/23 21:18 Dose: 25 mg Ondansetron HCl (Ondansetron Hcl 4 Mg/2 Ml Vial) 4 mg IVPUSH Q8H PRN PRN Reason: Nausea and Vomiting Oxycodone HCl (Oxycodone Hcl Immed Release 5 Mg Tablet) 5 mg PO Q4H PRN PRN Reason: Pain, Moderate(Pain Scale 4-6) Last Admin: 06/26/23 03:56 Dose: 5 mg Sodium Chloride (0.9 % Sodium Chloride Flush 3 Ml Syringe) [facility] Last Admin: 06/25/23 23:15 Dose: Not Given Home Medications Medication Instructions Recorded Confirmed Last Taken Type albuterol sulfate 90 mcg/actuation 2 puff inhalation Q6H PRN wheezing 06/13/23 06/25/23 Unknown History aerosol inhaler (Ventolin HFA) apixaban 5 mg tablet (Eliquis) 5 mg PO BID 06/13/23 06/25/23 Unknown History atorvastatin 20 mg tablet 20 mg PO DAILY 06/13/23 06/25/23 Unknown History fluticasone fur. 100 mcg-umeclid 1 ea inhalation DAILY 06/13/23 06/25/23 Unknown History 62.5 mcg-vilant 25 mcg inhalat.powder (Trelegy Ellipta) metoprolol tartrate 25 mg tablet 25 mg PO BID 06/13/23 06/25/23 Unknown History hydroxyzine pamoate 50 mg capsule 100 mg PO BEDTIME 06/14/23 06/25/23 Unknown History nicotine 14 mg/24 hr daily 1 patch transdermal DAILY PRN 06/25/23 06/25/23 Unknown History transdermal patch (Nicoderm CQ) Nicotine Cravings Physical Exam Vital Signs: Vital Signs: Last Vital Signs Temp 97.5 F 06/26/23 03:47 Pulse 62 06/26/23 03:47 Resp 18 06/26/23 03:47 BP 107/60 06/26/23 03:47 Pulse Ox 92 06/26/23 03:47 O2 Del Method Nasal Cannula 06/26/23 03:47 O2 Flow Rate 3 06/26/23 03:47 Oxygen Flow Rate 6 06/25/23 16:16 BMI result Body Mass Index 24.9 Chest: Other: Chest breath sounds bilaterally, left chest tube in place. Small air leak. GI: Other: Abdomen soft, benign Results Labs 06/26/23 05:25 06/26/23 05:25 Labs: Abnormal lab results 06/25/23 06/25/23 06/25/23 Range/Units 17:51 17:51 17:51 MPV 8.8 L (9.4-12.4) fL Eos % (Auto) 4.6 H (0-4) % PT 14.0 H (11.1-13.3) SEC INR 1.2 H (0.9-1.1) Chloride (96-108) mmol/L Anion Gap 11 L (12-20) BUN 20 H (9-16) mg/dL Creatinine 1.46 H (0.5-1.4) mg/dL Calcium 10.3 H (8.4-10.2) mg/dL 06/26/23 06/26/23 Range/Units 05:25 05:25 MPV 8.8 L (9.4-12.4) fL Eos % (Auto) 5.3 H (0-4) % PT (11.1-13.3) SEC INR (0.9-1.1) Chloride 109 H (96-108) mmol/L Anion Gap 11 L (12-20) BUN 18 H (9-16) mg/dL Creatinine (0.5-1.4) mg/dL Calcium (8.4-10.2) mg/dL Short CBC 06/25/23 06/26/23 Range/Units 17:51 05:25 WBC 6.8 7.2 (4.8-10.8) X10*3/uL Hgb 15.7 15.3 (14.0-18.0) g/dl Hct 45.6 45.0 (42.0-52.0) % Plt Count 245 D 216 (160-400) X10*3/uL BMP 06/25/23 06/26/23 17:51 05:25 Sodium 142 138 Potassium 4.7 4.3 Chloride 107 109 H Carbon Dioxide 29 22 BUN 20 H 18 H Creatinine 1.46 H 1.15 Calcium 10.3 H 9.5 D All other labs normal. Assessment and Plan (1) Recurrent spontaneous pneumothorax: Status: Acute Plan Because of the patient's recurrence of his pneumothorax and a short span, he is a candidate for thorascopic blood ectomy, pleurodesis, and apical pleurectomy. Risks, benefits, alternatives of the procedure reviewed the patient extensively and included but not limited to bleeding, infection, recurrence, numbness, pain, scarring and the patient wishes to proceed . All questions were answered. Patient had his Eliquis stopped yesterday morning. For assurance of hemostasis, Kcentra will be administered at the outset of the procedure. Time Spent With Patient Time: Total time managing care of this patient today ____ minutes. Procedures Date of Service Date of Service: 06/26/23
[2023-06-26] MEDS: Fluticasone/Umeclidinium/Vilanterol 100/62.5/25 BLST.W.DEV 1 PUFF INHALE (07:41)
[2023-06-26] MEDS: Lactated Ringers 1,000 ML 50 ML IVCONT (09:30)
--- NOTE | 2023-06-26 10:00 | P.CONAN_ITS ---
HPI - Anesthesia Eval Consult details Narrative: 67-year-old male with severe COPD and recurrent pneumothoraces secondary to blebs presenting for VATS thoracoscopy with bleb resection and pleurodesis. Last dose of Eliquis taken yesterday morning. Reversed with prothrombin concentrate administration in preop. On 3 L nasal cannula baseline. PMFSH Active Problems Active Problems: All Active Problems (Updated 06/26/23 @ 07:18 by Mario Castellano MD) Recurrent spontaneous pneumothorax (Acute) Spontaneous pneumothorax (Acute) History of deep vein thrombosis (Acute) On anticoagulant therapy (Acute) Mixed hyperlipidemia (Acute) Pruritic erythematous rash (Acute) Past Medical History Medical History COPD (chronic obstructive pulmonary disease) History of deep vein thrombosis History of hepatitis C Mixed hyperlipidemia On anticoagulant therapy Protein C deficiency Tobacco abuse Family History Family History Father Oral cancer Mother Stroke Family history of problems with anesthesia: No Surgical History Surgical History History of chest tube placement History of cholecystectomy History of ERCP History of surgery on lower extremity History of Problems with Anesthesia: No Social History Social History Household Members: None Housing: Apartment Do you presently have visiting nurse or other home services: Yes Alcohol intake: never Patient Tobacco Use Status: Former Tobacco user Quit Date: 06/13/23 Tobacco use type: Cigarette Cigarettes Per Day: -3 Second Hand Smoke Exposure: No Advance Directives Date on File: 06/17/23 service: No Meds Allergies Allergy/AdvReac Type Severity Reaction Status Date / Time Iodinated Contrast Media Allergy Hives Verified 06/25/23 16:22 [Contrast Dye] Active Medications: Current Medications Propofol (Diprivan) 1,000 mg in 100 mls @ 0 mls/hr IVCONT .Q0M [facility]; Protocol Fentanyl (Sublimaze/Ns) 1,000 mcg in 100 mls @ 0 mls/hr IVCONT .Q0M [facility]; Protocol Naloxone HCl (Naloxone Hcl 0.4 Mg/Ml Vial) 0.2 mg IVPUSH Q2M PRN PRN Reason: Excessive sedation or RR < 8 Ondansetron HCl (Ondansetron Hcl 4 Mg/2 Ml Vial) 4 mg IVPUSH Q8H PRN PRN Reason: Nausea and Vomiting Sodium Chloride (0.9 % Sodium Chloride Flush 3 Ml Syringe) 3 ml IVFLUSH QSHIFT [facility] Last Admin: 06/26/23 07:34 Dose: Not Given Home Medications Medication Instructions Recorded Confirmed Last Taken Type albuterol sulfate 90 mcg/actuation 2 puff inhalation Q6H PRN wheezing 06/13/23 06/25/23 Unknown History aerosol inhaler (Ventolin HFA) apixaban 5 mg tablet (Eliquis) 5 mg PO BID 06/13/23 06/25/23 Unknown History atorvastatin 20 mg tablet 20 mg PO DAILY 06/13/23 06/25/23 Unknown History fluticasone fur. 100 mcg-umeclid 1 ea inhalation DAILY 06/13/23 06/25/23 Unknown History 62.5 mcg-vilant 25 mcg inhalat.powder (Trelegy Ellipta) metoprolol tartrate 25 mg tablet 25 mg PO BID 06/13/23 06/25/23 Unknown History hydroxyzine pamoate 50 mg capsule 100 mg PO BEDTIME 06/14/23 06/25/23 Unknown History nicotine 14 mg/24 hr daily 1 patch transdermal DAILY PRN 06/25/23 06/25/23 Unknown History transdermal patch (Nicoderm CQ) Nicotine Cravings Exam Exam Date and Time: June 26, 2023 1334 Height,Weight and Vital Signs: Height 5 ft 9 in Weight 168 lb 6.931 oz Last Vital Signs Temp 97.5 F 06/26/23 09:24 Pulse 62 06/26/23 09:24 Resp 17 06/26/23 09:24 BP 113/66 06/26/23 09:24 Pulse Ox 95 06/26/23 09:24 O2 Del Method Nasal Cannula 06/26/23 09:24 O2 Flow Rate 3 06/26/23 09:24 FiO2 50 06/26/23 13:15 Oxygen Flow Rate 6 06/25/23 16:16 Pertinent Lab Results Pertinent Lab Results: Laboratory Tests 06/25/23 06/25/23 06/25/23 17:51 17:51 17:51 WBC 6.8 RBC 5.02 Hgb 15.7 Hct 45.6 MCV 90.8 MCH 31.3 MCHC 34.4 RDW 12.6 Plt Count 245 D MPV 8.8 L Immature Gran % (Auto) 0.4 Neut % (Auto) 62.7 Lymph % (Auto) 22.2 [place] % (Auto) 9.7 Eos % (Auto) 4.6 H Baso % (Auto) 0.4 Lymph # (Auto) 1.5 [place] # (Auto) 0.7 Eos # (Auto) 0.3 Baso # (Auto) 0.0 Abs Immat Gran (auto) 0.03 Absolute Neuts (auto) 4.3 Absolute Nucleated RBC 0.000 Nucleated RBC % (auto) 0.0 PT 14.0 H INR 1.2 H Sodium 142 Potassium 4.7 Chloride 107 Carbon Dioxide 29 Anion Gap 11 L BUN 20 H Creatinine 1.46 H Estim Creat Clear Calc 50.4 Estimated GFR 48 Random Glucose 104 Calcium 10.3 H COVID-19 (HENRRY) COVID-19 Clin Com 06/25/23 06/26/23 06/26/23 17:51 05:25 05:25 WBC 7.2 RBC 4.91 Hgb 15.3 Hct 45.0 MCV 91.6 MCH 31.2 MCHC 34.0 RDW 12.6 Plt Count 216 MPV 8.8 L Immature Gran % (Auto) 0.3 Neut % (Auto) 62.0 Lymph % (Auto) 23.2 [place] % (Auto) 8.8 Eos % (Auto) 5.3 H Baso % (Auto) 0.4 Lymph # (Auto) 1.7 [place] # (Auto) 0.6 Eos # (Auto) 0.4 Baso # (Auto) 0.0 Abs Immat Gran (auto) 0.02 Absolute Neuts (auto) 4.5 Absolute Nucleated RBC 0.000 Nucleated RBC % (auto) 0.0 PT INR Sodium 138 Potassium 4.3 Chloride 109 H Carbon Dioxide 22 Anion Gap 11 L BUN 18 H Creatinine 1.15 Estim Creat Clear Calc 64.0 Estimated GFR > 60 Random Glucose 98 Calcium 9.5 D COVID-19 (HENRRY) Negative COVID-19 Clin Com See Note Airway Mallampati Class: II TM Dist: >3cm Neck ROM: Full Denture: Upper Loose/Missing/Broken Teeth: Yes Other: Physical features consistent with cor pulmonale Assessment and Plan Assessment Anesthesia Assessment: Anesthesia Plan Discussed and Chart Reviewed Final Anesthetic Review Family History of Problems with Anesthesia: No History of Problems with Anesthesia: No NPO: Yes ASA Class: III Final Preanesthetic Review: No Changes in Pt Med Stat, Meds/Allgs Chart Reviewed, Consent Obtained/Reviewed and Anes Risks/Benef Reviewed Patient Risk: High Procedure Risk: High Anesthetic Plan Anesthetic Plan: GA Disposition: Standard PACU
--- NOTE | 2023-06-26 11:55 | W.PM.OPN ---
Operative Note Operative Note Date of Service: 06/26/23 Narrative: Preoperative diagnosis: [] Recurrent ipsilateral spontaneous left pneumothorax Postop diagnosis: [] Same Procedure [] bronchoscopy, pneumonolysis, left thoracoscopic blebectomy, apical parietal pleurectomy, chemical pleurodesis, intercostal nerve block Surgeon: [] [place] Supervisor: [] LISA Singleton Type of Anesthesia: [] Double-lumen general Indication for surgery: [] Recurrent ipsilateral spontaneous left pneumothorax. Intraoperative findings demonstrated huge bullous/bleb of the apex. No other gross intrathoracic pathology demonstrated. There were dense adhesions of this bullous to the apex of the chest parietal pleura which were required to be taken down in order to mobilize the apex of the lung for bleb resection. Bronchoscopy demonstrated no gross endobronchial pathology and was also used to cyst anesthesia and placement of a double-lumen tube. Lung demonstrated findings consistent with appreciable emphysema. Findings: [] Patient brought to the operating room, placed the op table supine position, after adequate level of double-lumen general anesthesia was induced, patient went bronchoscopy with findings noted above and then placed in the right lateral decubitus position. Left chest was prepped and draped in usual sterile fashion after the previously placed chest tube was removed. Seventh intercostal space below the scapular tip was used as the camera port. Posterior and anterior ports were placed under direct fluoroscopic view with findings as noted above. [place] of the lung/bullous was grasped and the dense adhesions to the superior sulcus were taken down sharply and with Bovie. Apical pleurectomy was also performed. Lung was transected at desired location of lung below the bullous using multi firings of DAWOOD purple DAWODO laparoscopic stapler. Chest cavity was filled with saline and operative lung reinflated and the staple line was pneumostatic . Specimen was retrieved. Chest cavity was very copiously irrigated, and secured hemostasis. All ports removed under direct vision. Through the anterior working port, 28 German chest tube was placed. This was secured the skin using 0 silk suture. Port sites were closed using deep and superficial 2-0 and 3-0 Vicryl sutures respectively. Chest tube was then connected to a Pleur-Evac and Valsalva demonstrated minimal air leak. Next through the chest tube, doxycyclin sclerosant was placed for chemical pleurodesis. Chest tube was once again connected to Pleur-evac with minimal air leak. Steri-Strips and sterile dressings were applied. Wounds were infiltrated with 0.5% Marcaine/1% lidocaine for intercostal nerve block Sponge, needle, and instrument counts reported correct. Patient tolerated procedure well and emerged anesthesia stable condition. EBL minimal Postprocedure x-ray is pending.
--- NOTE | 2023-06-26 12:23 | P.PNIM_ITS ---
Subjective Subjective Date of Service: 06/26/23 Interval History: seen and examined this morning follow up for left pneumothorax denies sob, has some dry cough Review of Systems Review of Systems: Yes all other systems are reviewed and are negative Constitutional Constitutional: Denies chills and Denies fever(s) Cardiovascular Cardiovascular: Denies chest pain and Denies dyspnea Respiratory Respiratory: Denies dyspnea Gastrointestinal Gastrointestinal: Denies abdominal pain Physical Exam Vital Signs: Vital Signs: Last Vital Signs Temp 97.5 F 06/26/23 09:24 Pulse 62 06/26/23 09:24 Resp 17 06/26/23 09:24 BP 113/66 06/26/23 09:24 Pulse Ox 95 06/26/23 09:24 O2 Del Method Nasal Cannula 06/26/23 09:24 O2 Flow Rate 3 06/26/23 09:24 Oxygen Flow Rate 6 06/25/23 16:16 BMI result Body Mass Index 24.9 Const: General: cooperative, comfortable, alert and awake Nutritional Appearance: average body habitus Orientation/consciousness: patient oriented x3 Resp: Other: left side chest tube in place Effort & Inspection: normal respiratory effort, no respiratory distress and no use of accessory muscles Cardio: Rate: regular rate GI: Inspection: No distended Palpation (GI): Soft to palpation Neuro: General: patient oriented x3, moves all extremities and CN's II-XI intact bilaterally Extrem: General: Yes no pedal edema Objective Data Active Medications Acetaminophen (Acetaminophen 325 Mg Tablet) 650 mg PO Q6H PRN PRN Reason: Pain, Mild (Pain Scale 1-3) Last Admin: 06/26/23 03:56 Dose: 650 mg Documented By: NAHED Atorvastatin Calcium (Atorvastatin Calcium 20 Mg Tablet) 20 mg PO DAILY [facility] Last Admin: 06/26/23 09:08 Dose: Not Given Documented By: LUCILA Non-Admin Reason: Off Unit: Surgery Fluticasone/Umeclidinium/Vilanterol (Fluticasone/Umeclidinium/Vilanterol 100/62.5/25 Blst.W.Dev) 1 puff INHALE RDAILY [facility] Last Admin: 06/26/23 07:41 Dose: 1 puff Documented By: NICK Hydroxyzine HCl (Hydroxyzine Hcl 50 Mg Tablet) 100 mg PO BEDTIME [facility] Last Admin: 06/25/23 21:18 Dose: 100 mg Documented By: CARINA Sodium Chloride (Ns) 1,000 mls @ 100 mls/hr IVCONT .Q10H [facility] Last Infusion: 06/26/23 11:39 Dose: 0 mls/hr Documented By: LUCILA Lactated Ringer's (Lr) 1,000 mls @ 50 mls/hr IVCONT .Q20H [facility] Last Admin: 06/26/23 09:30 Dose: 50 mls/hr Documented By: EDGAR Melatonin (Melatonin 3 Mg Tablet) 6 mg PO BEDTIME PRN PRN Reason: Insomnia Last Admin: 06/25/23 21:34 Dose: 6 mg Documented By: NAHED Metoprolol Tartrate (Metoprolol Tartrate 25 Mg Tablet) 25 mg PO BID [facility]; Protocol Last Admin: 06/26/23 09:08 Dose: Not Given Documented By: LUCILA Non-Admin Reason: Off Unit: Surgery Ondansetron HCl (Ondansetron Hcl 4 Mg/2 Ml Vial) 4 mg IVPUSH Q8H PRN PRN Reason: Nausea and Vomiting Oxycodone HCl (Oxycodone Hcl Immed Release 5 Mg Tablet) 5 mg PO Q4H PRN PRN Reason: Pain, Moderate(Pain Scale 4-6) Last Admin: 06/26/23 03:56 Dose: 5 mg Documented By: NAHED Sodium Chloride (0.9 % Sodium Chloride Flush 3 Ml Syringe) 3 ml IVFLUSH QSHIFT [facility] Last Admin: 06/26/23 07:34 Dose: Not Given Documented By: LUCILA Non-Admin Reason: IV Running Labs 06/26/23 05:25 06/26/23 05:25 Labs: Laboratory Results - last 24 hr 06/25/23 06/25/23 06/25/23 17:51 17:51 17:51 MCV 90.8 MCH 31.3 MCHC 34.4 RDW 12.6 Plt Count 245 D MPV 8.8 L Immature Gran % (Auto) 0.4 Neut % (Auto) 62.7 Lymph % (Auto) 22.2 [place] % (Auto) 9.7 Eos % (Auto) 4.6 H Baso % (Auto) 0.4 Lymph # (Auto) 1.5 [place] # (Auto) 0.7 Eos # (Auto) 0.3 Baso # (Auto) 0.0 Abs Immat Gran (auto) 0.03 Absolute Neuts (auto) 4.3 Absolute Nucleated RBC 0.000 Nucleated RBC % (auto) 0.0 PT 14.0 H INR 1.2 H Anion Gap 11 L Estim Creat Clear Calc 50.4 Estimated GFR 48 Random Glucose 104 Calcium 10.3 H COVID-19 (HENRRY) COVID-19 Clin Com 06/25/23 06/26/23 06/26/23 17:51 05:25 05:25 MCV 91.6 MCH 31.2 MCHC 34.0 RDW 12.6 Plt Count 216 MPV 8.8 L Immature Gran % (Auto) 0.3 Neut % (Auto) 62.0 Lymph % (Auto) 23.2 [place] % (Auto) 8.8 Eos % (Auto) 5.3 H Baso % (Auto) 0.4 Lymph # (Auto) 1.7 [place] # (Auto) 0.6 Eos # (Auto) 0.4 Baso # (Auto) 0.0 Abs Immat Gran (auto) 0.02 Absolute Neuts (auto) 4.5 Absolute Nucleated RBC 0.000 Nucleated RBC % (auto) 0.0 PT INR Anion Gap 11 L Estim Creat Clear Calc 64.0 Estimated GFR > 60 Random Glucose 98 Calcium 9.5 D COVID-19 (HENRRY) Negative COVID-19 Clin Com See Note Assessment and Plan (1) Recurrent spontaneous pneumothorax: Status: Acute Plan This is a 67-year-old male with pertinent history of DVT on Eliquis, mixed hyperlipidemia, COPD not on home oxygen, mood disorder who presents to the emergency department for evaluation of dyspnea. Spontaneous pneumothorax secondary in the setting of COPD Continue chest tube to suction seen by throacic surgery - plan for pleurodesis and apical pleurectomy eliquis on hold for planned procedure Acute hypoxemic respiratory failure in the setting of above Monitor oxygen saturation and wean as tolerated Mixed hyperlipidemia continue statin h/o protein c def with h/o recurrent DVT Eliquis on hold for planned procedure - resume when safe per surgery COPD Continue home inhalers Tobacco use disorder Patient's states he quit about 10 days ago. Does not want nicotine patch CKD3 Creatinine at baseline DVT prophylaxis:? Eliquis on hold in setting of CT tube Full code attending - dr. oliveira requires ongoing inpatient stay for surgical intervention secondary to recurrent pneumothorax, close monitoring of respiratory status Time Spent With Patient Time: Total time managing care of this patient today ____ minutes. Quality Stroke Does the patient have a stroke diagnosis?: No VTE Prior VTE?: No VTE Risk Level:: Medical - moderate - high VTE Device Contraindication: Treatment Not Indicated VTE Drug Contraindication: N/A - Med Ordered
[2023-06-26] MEDS: propofoL 1,000 MG/100 ML VIAL 13.75 MG IVCONT (13:15)
[2023-06-26] MEDS: fentaNYL citrate/NS 1,000 MCG/100 ML PLAST..BAG 2.5 MCG IVCONT (13:40)
[2023-06-26] MEDS: fentaNYL citrate/PF 100 MCG/2 ML VIAL 50 MCG IVPUSH ×2 (13:58→22:00)
[2023-06-26 14:32] LABS: Anion Gap 13 (12-20); Blood Urea Nitrogen 15 mg/dL (9-16); Calcium 9.2 mg/dL (8.4-10.2); Carbon Dioxide 21 mmol/L (22-29); Chloride 108 mmol/L (96-108); Creatinine Clr Calc Pharmacy 60.8; Estimated Glomerular Filt Rate > 60; Glucose Random 135 mg/dL (60-115); Potassium 4.7 mmol/L (3.3-5.1); Sodium 137 mmol/L (135-145)
--- NOTE | 2023-06-26 14:38 | PC.NURSE ---
Addendum entered by Bryce Aguiar RN 06/26/23 15:18: Extubated at 1514 with MD & RT at bedside - with no issue - speaking full sentences, 5 liters nasal cannula. No stridor noted. Managing secretions. Addendum entered by Bryce Aguiar RN 06/26/23 14:39: Chest tube had 90ml brown/blood drainage noted. Original Note: Received patient to ICU room 254, @ approx 1255. Intubated w/ 7.5 ETT @ 22cm, post op lap thoracotomy, 28fr chest tube in place - left upper chest. Report received from PUBLIC SERVICE OFFICER & anesthesia at bedside upon transport. Ambu bag used for transport, put on vent in ICU with RT at bedside - AC 14, TV 450, PEEP 5, fio2 50%. Restraints applied for airway safety. Started patient on propofol, to anticipate awakening, per Dr Alcantara order (see MAR). Key cath inserted - 16fr. CXR ordered & taken. Order to put chest tube to -20 cm suction, per Elizabeth GONZALEZ. Order initiated, small grade 1 leak noted with suction. small amt crepitus noted on left breast / side area. Elizabeth made aware of leak noted when suction put on. No new ordered. Fentanyl started - plan to treat pain and decrease propofol, goal to wake patient up per Dr Alcantara. Patient awakening with titration to verbal stimuli. Tolerating vent. Patient put on pressure support 5/5, 50% - tolerated for a short time. 50mcg fent bolus given @ 1358, patient back to sleep - changed back to AC settings - with MD at bedside during sedation vacation & weaning trial.
--- NOTE | 2023-06-26 14:39 | PC.NURSE ---
Addendum entered by Jared Allen RN 06/26/23 18:13: Patient has two incisions on left upper back with dressings intact, slight staining to upper dressing. Left lateral chest tube site. Addendum entered by Jared Allen RN 06/26/23 18:11: left lateral chest tube with 30 ccs of sanguineous drainage. Addendum entered by Jared Allen RN 06/26/23 17:54: OOB to recliner with 2 assist. titrated oxygen to 4 LPM Addendum entered by Jared Allen RN 06/26/23 17:33: Extubated successfuly about 15:10 to 6 LPM with SpO2 goal of 88% and higher. Bedside swallow eval passed and Clear liquide diet started and well tolerated. Key removed at 17:30, due to void by 2330. Patient doing well with incentive spirometry, volumes to 1250 weaned to 5 LPM nasal cannula, patient reports no home o2. SpO2 91% on 5 LPM. Patient reports he quit smoking cigarettes 2 weeks ago. Patient concerned about brawny dicoloratoin to legs, per MD no intervention at this time, but patient encouraged to stay quit smoking and lotion moisturizer Original Note: Assumed care at 14:40. Patient alert and following commands, ETCO2 33 Triaing PSV per MD 8/5 and 50%, Patient tolerating on Propofol at 10 and Fentanyl 25 mg/hr.
[2023-06-26 14:51] LABS: MANUAL DIFF FLAG NO; VBG HCO3 26 mmol/L (22-26); VBG pCO2 52 mmHg; VBG pO2 32 mmHg
[2023-06-26 14:52] LABS: Basophils Percent Auto 0.2 % (0-2); Eosinophils Absolute Auto 0.1 X10*3/uL (0.0-0.4); Eosinophils Percent Auto 0.5 % (0-4); Hematocrit 45.5 % (42.0-52.0); Hemoglobin 15.7 g/dl (14.0-18.0); Imm Gran Abs Auto 0.04 X10*3/uL (0.00-0.03); Imm Gran Pct Auto 0.4 % (0.0-0.4); Lymphocytes Absolute Auto 0.5 X10*3/uL (1.2-4.9); Lymphocytes Percent Auto 5.2 % (20-40); Mean Corpuscular HGB Conc 34.5 g/dl (31.0-36.0); Mean Corpuscular Volume 92.9 fL (80.0-98.0); Mean Platelet Volume 8.7 fL (9.4-12.4); Monocytes Absolute Auto 0.4 X10*3/uL (0.1-1.2); Monocytes Percent Auto 4.2 % (2-11); Neutrophils Absolute Auto 8.7 x10*3/uL (2.0-8.3); Neutrophils Percent Auto 89.5 % (45-73); Platelet Count 165 X10*3/uL (160-400); Red Cell Distribution Width 12.6 % (11.0-16.0); White Blood Count 9.8 X10*3/uL (4.8-10.8)
[2023-06-26 14:57] LABS: Venous Blood Gas Refer to POC result
[2023-06-26] MEDS: fentaNYL citrate/PF 100 MCG/2 ML VIAL 25 MCG IVPUSH ×3 (15:34→20:17)
--- NOTE | 2023-06-26 15:54 | PM.CCN ---
Critical Care Event Note Summary Date of Service: 06/26/23 Code activated: No Narrative: 67-year-old gentleman admitted with recurrent left-sided pneumothorax, status post left chest tube and now postoperative day 0 after left-sided pleural disease and excision of a pulmonary bulla. Patient required re-intubation at the end the case and was transferred to intensive care unit for further care. In the intensive care unit patient weaned of ventilatory support and uneventfully extubated at approximately 15:00. Critical Care Time (minutes): 30
[2023-06-26] MEDS: 0.9 % Sodium Chloride Flush 3 ML SYRINGE IVFLUSH (17:28)
[2023-06-26] MEDS: Morphine Sulfate 2 MG/ML CARTRIDGE 1 MG IVPUSH (23:05)
[2023-06-26] MEDS: hydrOXYzine HCL 50 MG TABLET PO (23:32)
[2023-06-27] VITALS (19 sets, daily range): BP systolic 92–139; BP diastolic 55–73; PULSE 67–90; RESP 12–87; TEMP 36.1–37.2; O2SAT 73–94; BMI 25.6
[2023-06-27] MEDS: Morphine Sulfate 2 MG/ML CARTRIDGE 1 MG IVPUSH ×3 (02:37→11:00)
[2023-06-27 04:47] LABS: VBG Base Excess 0.2 mmol/L; VBG HCO3 26 mmol/L (22-26); VBG pCO2 47 mmHg; VBG pH 7.34 (7.32-7.43); VBG pO2 35 mmHg
[2023-06-27 05:01] LABS: MANUAL DIFF FLAG NO
[2023-06-27 05:02] LABS: Basophils Percent Auto 0.1 % (0-2); Hematocrit 43.6 % (42.0-52.0); Imm Gran Abs Auto 0.03 X10*3/uL (0.00-0.03); Imm Gran Pct Auto 0.3 % (0.0-0.4); Lymphocytes Absolute Auto 0.7 X10*3/uL (1.2-4.9); Lymphocytes Percent Auto 7.1 % (20-40); Mean Corpuscular HGB Conc 34.4 g/dl (31.0-36.0); Mean Corpuscular Hemoglobin 31.3 pg (27.0-33.0); Mean Platelet Volume 8.7 fL (9.4-12.4); Monocytes Absolute Auto 0.7 X10*3/uL (0.1-1.2); Monocytes Percent Auto 6.6 % (2-11); Neutrophils Absolute Auto 8.7 x10*3/uL (2.0-8.3); Neutrophils Percent Auto 85.9 % (45-73); Platelet Count 188 X10*3/uL (160-400); Red Blood Count 4.79 X10*6/uL (4.60-5.80); Red Cell Distribution Width 12.4 % (11.0-16.0); White Blood Count 10.2 X10*3/uL (4.8-10.8)
[2023-06-27 05:15] LABS: Venous Blood Gas Refer to POC result
[2023-06-27 05:18] LABS: Albumin Level 3.7 g/dL (3.5-5.0); Anion Gap 15 (12-20); Blood Urea Nitrogen 15 mg/dL (9-16); Calcium 9.8 mg/dL (8.4-10.2); Carbon Dioxide 23 mmol/L (22-29); Chloride 103 mmol/L (96-108); Creatinine Clr Calc Pharmacy 63.4; Estimated Glomerular Filt Rate > 60; Glucose Random 135 mg/dL (60-115); Magnesium 1.9 mg/dL (1.6-2.6); Phosphorus 3.1 mg/dL (2.7-4.5); Potassium 5.2 mmol/L (3.3-5.1); Sodium 136 mmol/L (135-145)
[2023-06-27] MEDS: 0.9 % Sodium Chloride Flush 3 ML SYRINGE IVFLUSH ×4 (08:12→20:40)
--- NOTE | 2023-06-27 08:21 | PM.PNTS ---
Subjective Subjective Date of Service: 06/27/23 Interval history: Extubated yesterday afternoon. Had uneventful night. Has pain at chest tube and incision sites and reports difficulty taking deep breaths. Pain meds help a little but wear off quickly. Has only used incentive spirometer a few times. Has not been OOB. Physical Exam Vital Signs: Vital Signs: Last Vital Signs Temp 97.4 F 06/27/23 08:00 Pulse 80 06/27/23 08:00 Resp 17 06/27/23 08:00 BP 121/68 06/27/23 08:00 Pulse Ox 92 06/27/23 08:00 O2 Del Method Nasal Cannula, Me chanical Ventilati on 06/27/23 08:00 O2 Flow Rate 4 06/27/23 08:00 FiO2 30 06/26/23 15:07 Oxygen Flow Rate 6 06/25/23 16:16 BMI result Body Mass Index 25.6 Const: General: comfortable, no acute distress and alert Orientation/consciousness: patient oriented x3 Chest: Other: left chest incision site dressings clean; chest tube in place with no evidence of air leak, tea colored drainage Resp: Effort & Inspection: normal respiratory effort Cardio: Rate: regular rate GI: Inspection: Yes distended Palpation (GI): Soft to palpation and nontender Skin: General skin exam: no rashes or lesions noted Neuro: General: patient oriented x3 and moves all extremities Procedures Date of Service Date of Service: 06/27/23 Progress Note: A&P Assessment and plan (1) Recurrent spontaneous pneumothorax: Status: Acute Plan 67 year old male admitted with recurrent spontaneous pneumothorax now POD #1 s/p bronchoscopy, left thoracoscopic blebectomy, apical parietal pleurectomy, chemical pleurodesis, intercostal nerve block. He was reintubated in the OR post operatively but was successfully extubated yesterday afternoon. He is doing well post op and remains stable. C/o pain and difficulty deep breathing. VSS- O2 sats low 90s on 4L NC. Chest tube in place with low output, tea colored drainage consistent with doxycycline. No evidence of air leak. CXR this am shows no pneumo, await read. Will adjust pain medications. Encouraged OOB and incentive spirometer at least 10x/hr. Will advance diet. Time Spent With Patient Time: Total time managing care of this patient today ____ minutes. Quality Stroke Does the patient have a stroke diagnosis?: No VTE Prior VTE?: No VTE Risk Level:: Medical - moderate - high VTE Device Contraindication: Treatment Not Indicated VTE Drug Contraindication: N/A - Med Ordered
--- NOTE | 2023-06-27 10:05 | P.PNCC_ITS ---
Subjective Subjective Date of Service: 06/27/23 Interval History: 67-year-old gentleman with underlying DVT on Eliquis, COPD, recurrent left- sided pneumothorax admitted with recurrence of his left-sided pneumothorax, now postoperative day 1 after left-sided pleural disease with resection of parenchymal bulla required re-intubation after the procedure, and thus transferred to intensive care unit, extubated uneventfully on 06/26/2023. No events overnight. Critical Care Time (minutes): 0 Physical Exam Vital Signs: Vital Signs: Last Vital Signs Temp 98.9 F 06/27/23 09:00 Pulse 90 06/27/23 09:00 Resp 20 06/27/23 09:00 BP 120/63 06/27/23 09:00 Pulse Ox 91 L 06/27/23 09:00 O2 Del Method Nasal Cannula 06/27/23 09:00 O2 Flow Rate 4 06/27/23 09:00 FiO2 30 06/26/23 15:07 Oxygen Flow Rate 6 06/25/23 16:16 BMI result Body Mass Index 25.6 Const: General: no acute distress, alert and awake Eyes: Sclerae: sclerae normal EOM: EOMs intact bilaterally Neck: Neck: Yes no lymphadenopathy, Yes trachea midline and Yes supple Chest: Other: Left-sided chest tube to suction Resp: Effort & Inspection: normal respiratory effort and no respiratory distress Auscultation: clear to auscultation bilaterally Cardio: Rate: regular rate Rhythm: regular rhythm Heart sounds: no gallops, no murmurs and no rubs GI: Palpation (GI): Soft to palpation and Other GI palpation findings present ( Nontender) Auscultation: normal bowel sounds Extrem: General: Yes no pedal edema, No clubbing and No cyanosis Objective Data Labs 06/27/23 04:42 06/27/23 04:42 Labs: Laboratory Results - last 24 hr 06/26/23 06/26/23 06/26/23 14:12 14:46 14:46 WBC 9.8 RBC 4.90 Hgb 15.7 Hct 45.5 MCV 92.9 MCH 32.0 MCHC 34.5 RDW 12.6 Plt Count 165 MPV 8.7 L Immature Gran % (Auto) 0.4 Neut % (Auto) 89.5 H Lymph % (Auto) 5.2 L Weston % (Auto) 4.2 Eos % (Auto) 0.5 Baso % (Auto) 0.2 Lymph # (Auto) 0.5 L Weston # (Auto) 0.4 Eos # (Auto) 0.1 Baso # (Auto) 0.0 Abs Immat Gran (auto) 0.04 H Absolute Neuts (auto) 8.7 H Absolute Nucleated RBC 0.000 Nucleated RBC % (auto) 0.0 VBG pH 7.30 L VBG pCO2 52 VBG pO2 32 VBG HCO3 26 VBG O2 Saturation 52.0 VBG Base Excess -1.0 Sodium 137 Potassium 4.7 Chloride 108 Carbon Dioxide 21 L Anion Gap 13 BUN 15 Creatinine 1.21 Estim Creat Clear Calc 60.8 Estimated GFR > 60 Random Glucose 135 H Calcium 9.2 Phosphorus Magnesium Albumin 06/27/23 06/27/23 06/27/23 04:42 04:42 04:43 WBC 10.2 RBC 4.79 Hgb 15.0 Hct 43.6 MCV 91.0 MCH 31.3 MCHC 34.4 RDW 12.4 Plt Count 188 MPV 8.7 L Immature Gran % (Auto) 0.3 Neut % (Auto) 85.9 H Lymph % (Auto) 7.1 L Weston % (Auto) 6.6 Eos % (Auto) 0.0 Baso % (Auto) 0.1 Lymph # (Auto) 0.7 L Weston # (Auto) 0.7 Eos # (Auto) 0.0 Baso # (Auto) 0.0 Abs Immat Gran (auto) 0.03 Absolute Neuts (auto) 8.7 H Absolute Nucleated RBC 0.000 Nucleated RBC % (auto) 0.0 VBG pH 7.34 VBG pCO2 47 VBG pO2 35 VBG HCO3 26 VBG O2 Saturation 61.0 VBG Base Excess 0.2 Sodium 136 Potassium 5.2 H Chloride 103 Carbon Dioxide 23 Anion Gap 15 BUN 15 Creatinine 1.16 Estim Creat Clear Calc 63.4 Estimated GFR > 60 Random Glucose 135 H Calcium 9.8 D Phosphorus 3.1 Magnesium 1.9 Albumin 3.7 Progress Note: A&P Assessment and plan (1) Recurrent spontaneous pneumothorax: Status: Acute (2) COPD (chronic obstructive pulmonary disease): Status: Acute (3) History of hepatitis C: Status: Acute Plan Assessment: 67-year-old gentleman admitted with recurrent left-sided spontaneous pneumothorax, now status post pleurodesis and bleb resection Plan: Neuro: No acute issues. Cardiac: No acute issues. Pulmonary: required re-intubation after the procedure, extubated uneventfully on 06/26/2023. Thoracic surgery service care appreciated. Chest tube management as per survive sick surgery. Underlying COPD. Renal: No acute issues. Endo: No acute issues. GI: No acute issues. ID: No acute issues Heme/Onc: No acute issues. Psych: No acute issues. Miscellaneous: No acute issues. Prophylaxis: Pneumatic compression Diet: regular Quality Stroke Does the patient have a stroke diagnosis?: No VTE Prior VTE?: No VTE Risk Level:: Medical - moderate - high VTE Device Contraindication: Treatment Not Indicated VTE Drug Contraindication: N/A - Med Ordered
--- NOTE | 2023-06-27 10:35 | MHC.CM.PN ---
IMM DELIVERED LIVES ALONE. HAS 9 HRS/WEEK [employer] HOURS AND IS ACTIVE WITH A NURSE FROM [facility]. +HCP (HAS COPY AT HOME AND WILL HAVE [employer] BRING IN) + COVID VAX PCP DR. SILVA AT [facility]: HOME WITH RESUMPTION OF PREVIOUS SERVICES. RETURN REFERRAL SENT TO [facility]. PT IS INQUIRING ABOUT OBTAINING A HOSPITAL BED. NUMBER FOR [employer] PROVIDED TO CALL FOR GUIDANCE ON THIS FOR INSURANCE ELIGIBILITY. PT HAS OWN RIDE HOME. CM WILL CONTINUE TO FOLLOW FOR DC PLAN/NEEDS.
--- NOTE | 2023-06-27 14:34 | HO.POSTANES ---
Post Anesthesia Evaluation Post Anesthesia Evaluation Date of Service: 06/26/23 Vital Signs: Vital Signs Temp Pulse Resp BP Pulse Ox O2 Del Method O2 Flow Rate 06/27/23 13:57 97.3 F 90 87 H 135/65 93 Nasal Cannula 4 06/27/23 13:00 67 17 114/67 94 Nasal Cannula 4 06/27/23 12:00 73 13 126/61 73 L Nasal Cannula 4 06/27/23 11:00 97.4 F 81 20 122/69 93 Nasal Cannula 4 06/27/23 10:00 98.4 F 76 16 127/65 92 Nasal Cannula 4 06/27/23 09:00 98.9 F 90 20 120/63 91 L Nasal Cannula 4 06/27/23 08:00 97.4 F 80 17 121/68 92 Nasal Cannula 4 06/27/23 07:00 85 16 109/58 L 90 L Nasal Cannula 4 06/27/23 06:46 16 06/27/23 06:00 73 13 97/56 L 93 Nasal Cannula 4 06/27/23 02:37 20 06/27/23 04:02 74 12 97/55 L 91 L Nasal Cannula 4 06/27/23 03:00 75 14 98/57 L 92 Nasal Cannula 4 Anesthesia: General Endotracheal-GETA Mental Status: Awake Pain Control: Satisfactory Nausea/Vomiting: None Hydration: Adequate Anesthesia-Related Issues: No Anes. Related Issues
--- NOTE | 2023-06-27 15:11 | PM.EVENT ---
Event Note Date of Service: 06/27/23 Event Note: This is a 67-year-old male with pertinent history of DVT on Eliquis, mixed hyperlipidemia, COPD not on home oxygen, mood disorder who presents to the emergency department for evaluation of dyspnea found to have recurrent pneumothorax Spontaneous pneumothorax - related to bleb seen by throacic surgery - s/p bronchoscopy, pneumonolysis, left thoracoscopic blebectomy, apical parietal pleurectomy, chemical pleurodesis, intercostal nerve block 06/26. required intubation following procedure and was transferred to the ICU. He was extubated at 3pm on the day of procedure and monitored in ICU overnight. He was downgraded from the ICU 06/27 now POD #1 and chest tube removed this afternoon - repeat CXR pending eliquis on hold for planned procedure wean supplemental oxygen as tolerated eliquis was placed on hold for procedure - discuss with surgery about timing of resuming AC Time Spent With Patient Time: Total time managing care of this patient today ____ minutes.
[2023-06-27] MEDS: HYDROmorphone HCl 0.5 MG/0.5 ML SYRINGE IVPUSH ×2 (15:46→20:41)
[2023-06-27] MEDS: Acetaminophen 1,000 MG/100 ML PIGGYBACK 400 MG IV ×2 (15:48→20:39)
[2023-06-28] VITALS (9 sets, daily range): BP systolic 104–134; BP diastolic 69–80; PULSE 77–90; RESP 16–20; TEMP 35.9–37; O2SAT 91–97
[2023-06-28] MEDS: HYDROmorphone HCl 0.5 MG/0.5 ML SYRINGE IVPUSH ×5 (01:35→22:45)
[2023-06-28] MEDS: hydrOXYzine HCL 50 MG TABLET PO ×2 (01:36→20:21)
[2023-06-28] MEDS: Acetaminophen 1,000 MG/100 ML PIGGYBACK 400 MG IV ×2 (01:45→15:01)
[2023-06-28 07:12] LABS: Hematocrit 45.8 % (42.0-52.0); Hemoglobin 16.1 g/dl (14.0-18.0); Mean Corpuscular HGB Conc 35.2 g/dl (31.0-36.0); Mean Corpuscular Hemoglobin 32.1 pg (27.0-33.0); Mean Corpuscular Volume 91.2 fL (80.0-98.0); Mean Platelet Volume 8.8 fL (9.4-12.4); Platelet Count 193 X10*3/uL (160-400); Red Blood Count 5.02 X10*6/uL (4.60-5.80); Red Cell Distribution Width 12.7 % (11.0-16.0); White Blood Count 10.1 X10*3/uL (4.8-10.8)
--- NOTE | 2023-06-28 08:09 | P.PNIM_ITS ---
Subjective Subjective Date of Service: 06/28/23 Interval History: seen and examined this morning follow up for left pneumothorax denies sob, has some dry cough Complaints of pain to chest area Review of Systems Review of Systems: Yes all other systems are reviewed and are negative Constitutional Constitutional: Denies chills and Denies fever(s) Cardiovascular Cardiovascular: Denies chest pain and Denies dyspnea Respiratory Respiratory: Denies dyspnea Gastrointestinal Gastrointestinal: Denies abdominal pain Physical Exam Vital Signs: Vital Signs: Last Vital Signs Temp 97.4 F 06/28/23 07:33 Pulse 87 06/28/23 07:33 Resp 17 06/28/23 07:33 BP 134/80 06/28/23 07:33 Pulse Ox 93 06/28/23 07:33 O2 Del Method Nasal Cannula 06/28/23 07:33 O2 Flow Rate 4 06/28/23 07:33 FiO2 30 06/26/23 15:07 Oxygen Flow Rate 6 06/25/23 16:16 BMI result Body Mass Index 25.6 Appearing in no acute distress lung sounds are clear to auscultation heart regular rate rhythm, clear S1, S2 positive bowel sounds, abdomen is soft, nontender neuro patient is alert x3, no focal deficits Objective Data Active Medications Apixaban (Apixaban 5 Mg Tablet) 5 mg PO BID ALPHONSE Hydromorphone HCl (Hydromorphone Hcl 0.5 Mg/0.5 Ml Syringe) 0.5 mg IVPUSH Q3H PRN; Protocol PRN Reason: Pain, Severe (Pain Scale 7-10) Last Admin: 06/28/23 01:35 Dose: 0.5 mg Documented By: PABLITO Hydroxyzine HCl (Hydroxyzine Hcl 50 Mg Tablet) 50 mg PO BEDTIME PRN PRN Reason: Insomnia Last Admin: 06/28/23 01:36 Dose: 50 mg Documented By: PABLITO Acetaminophen (Ofirmev) 1,000 mg in 100 mls @ 400 mls/hr IV Q6H ALPHONSE Last Infusion: 06/28/23 02:16 Dose: 0 mls/hr Documented By: PABLITO Naloxone HCl (Naloxone Hcl 0.4 Mg/Ml Vial) 0.2 mg IVPUSH Q2M PRN PRN Reason: Excessive sedation or RR < 8 Ondansetron HCl (Ondansetron Hcl 4 Mg/2 Ml Vial) 4 mg IVPUSH Q8H PRN PRN Reason: Nausea and Vomiting Oxycodone HCl (Oxycodone Hcl Immed Release 5 Mg Tablet) 5 mg PO Q4H PRN PRN Reason: Pain, Moderate(Pain Scale 4-6) Oxycodone HCl (Oxycodone Hcl Immed Release 5 Mg Tablet) 10 mg PO Q4H PRN PRN Reason: Pain, Severe (Pain Scale 7-10) Sodium Chloride (0.9 % Sodium Chloride Flush 3 Ml Syringe) 3 ml IVFLUSH QSHIFT [facility] Last Admin: 06/27/23 20:40 Dose: 3 ml Documented By: PABLITO Labs 06/28/23 06:54 06/27/23 04:42 Labs: Laboratory Results - last 24 hr 06/28/23 06:54 MCV 91.2 MCH 32.1 MCHC 35.2 RDW 12.7 Plt Count 193 MPV 8.8 L Absolute Nucleated RBC 0.000 Nucleated RBC % (auto) 0.0 Assessment and Plan (1) Recurrent spontaneous pneumothorax: Status: Acute Plan 67-year-old man admitted for recurrent pneumothorax. Status post bronchoscopy with transfer to ICU due to difficult extubation postop. Successfully extubated on 06/27/2023 in transfer to medical floor Spontaneous pneumothorax Status post bronchoscopy, pneumonolysis, left thoracoscopic blebectomy, apical parietal pleurectomy, chemical pleurodesis, intercostal nerve block 06/26 Chest tube removed 06/27/2023, dressing to be in placed into 06/29/2023, then change daily Continue supplemental oxygen Thoracic surgery following Pain management History of DVT On lifelong Eliquis Restarted today COPD No exacerbation Albuterol as needed Hyperlipidemia Continue statin hypertension Continue metoprolol DVT prophylaxis with Mallorie attending Dr. Guillen Full code Continue hospitalization for treatment of spontaneous pneumothorax requiring close monitoring of respiratory status Time Spent With Patient Time: Total time managing care of this patient today ____ minutes. Quality Stroke Does the patient have a stroke diagnosis?: No VTE Prior VTE?: No VTE Risk Level:: Medical - moderate - high VTE Device Contraindication: Treatment Not Indicated VTE Drug Contraindication: N/A - Med Ordered
[2023-06-28] MEDS: Apixaban 5 MG TABLET PO ×2 (08:14→19:59)
[2023-06-28] MEDS: 0.9 % Sodium Chloride Flush 3 ML SYRINGE IVFLUSH ×3 (08:19→19:58)
[2023-06-28] MEDS: oxyCODONE HCl Immed Release 5 MG TABLET 10 MG PO (08:43)
[2023-06-28] MEDS: Metoprolol Tartrate 25 MG TABLET PO ×2 (08:43→19:59)
[2023-06-28 11:43] LABS: Anion Gap 16 (12-20); Blood Urea Nitrogen 22 mg/dL (9-16); Carbon Dioxide 20 mmol/L (22-29); Chloride 106 mmol/L (96-108); Creatinine Clr Calc Pharmacy 69.4; Estimated Glomerular Filt Rate > 60; Glucose Random 102 mg/dL (60-115); Potassium 4.4 mmol/L (3.3-5.1); Sodium 138 mmol/L (135-145)
[2023-06-28] MEDS: oxyCODONE HCl Immed Release 5 MG TABLET PO (20:20)
[2023-06-29] MEDS: Acetaminophen 1,000 MG/100 ML PIGGYBACK 400 MG IV ×3 (00:54→20:02)
[2023-06-29 03:15] VITALS: BP 111/67; PULSE 61; RESP 19; TEMP 37.1; O2SAT 95
[2023-06-29] MEDS: HYDROmorphone HCl 0.5 MG/0.5 ML SYRINGE IVPUSH ×5 (05:09→22:30)
[2023-06-29 05:57] VITALS: BMI 25.9
[2023-06-29 07:52] VITALS: BP 121/80; PULSE 71; RESP 18; TEMP 36.2; O2SAT 93
[2023-06-29] MEDS: Metoprolol Tartrate 25 MG TABLET PO ×2 (08:24→20:01)
[2023-06-29] MEDS: oxyCODONE HCl Immed Release 5 MG TABLET PO ×2 (08:24→17:20)
[2023-06-29] MEDS: Docusate Sodium 100 MG CAPSULE 200 MG PO (08:24)
[2023-06-29] MEDS: polyethylene glycoL 3350 17 GM POWD.PACK PO ×2 (08:24→19:58)
[2023-06-29] MEDS: Apixaban 5 MG TABLET PO ×2 (08:24→20:02)
[2023-06-29] MEDS: 0.9 % Sodium Chloride Flush 3 ML SYRINGE IVFLUSH ×2 (08:25→13:31)
--- NOTE | 2023-06-29 09:32 | P.PNIM_ITS ---
Subjective Subjective Date of Service: 06/29/23 Interval History: seen and examined this morning follow up for left pneumothorax denies sob, has some dry cough Complaints of pain to chest area Review of Systems Review of Systems: Yes all other systems are reviewed and are negative Constitutional Constitutional: Denies chills and Denies fever(s) Cardiovascular Cardiovascular: Denies chest pain and Denies dyspnea Respiratory Respiratory: Denies dyspnea Gastrointestinal Gastrointestinal: Denies abdominal pain Physical Exam Vital Signs: Vital Signs: Last Vital Signs Temp 97.1 F 06/29/23 07:52 Pulse 71 06/29/23 07:52 Resp 18 06/29/23 07:52 BP 121/80 06/29/23 07:52 Pulse Ox 93 06/29/23 07:52 O2 Del Method Nasal Cannula 06/29/23 07:52 O2 Flow Rate 3 06/29/23 07:52 FiO2 30 06/26/23 15:07 Oxygen Flow Rate 6 06/25/23 16:16 BMI result Body Mass Index 25.9 Appearing in no acute distress lung sounds are clear to auscultation heart regular rate rhythm, clear S1, S2 positive bowel sounds, abdomen is soft, nontender neuro patient is alert x3, no focal deficits Objective Data Active Medications Albuterol Sulfate (Albuterol Sulfate (0.083%) 2.5 Mg/3 Ml Vial.Neb) 2.5 mg INHALE Q4H PRN PRN Reason: Wheezing Apixaban (Apixaban 5 Mg Tablet) 5 mg PO BID ALPHONSE Last Admin: 06/29/23 08:24 Dose: 5 mg Documented By: ALBA Docusate Sodium (Docusate Sodium 100 Mg Capsule) 200 mg PO BEDTIME [facility] Hydromorphone HCl (Hydromorphone Hcl 0.5 Mg/0.5 Ml Syringe) 0.5 mg IVPUSH Q3H PRN; Protocol PRN Reason: Pain, Severe (Pain Scale 7-10) Last Admin: 06/29/23 05:09 Dose: 0.5 mg Documented By: JOSIAH Hydroxyzine HCl (Hydroxyzine Hcl 50 Mg Tablet) 50 mg PO BEDTIME PRN PRN Reason: Insomnia Last Admin: 06/28/23 20:21 Dose: 50 mg Documented By: ZACH Acetaminophen (Ofirmev) 1,000 mg in 100 mls @ 400 mls/hr IV Q6H [facility] Last Admin: 06/29/23 08:25 Dose: 400 mls/hr Documented By: ALBA Metoprolol Tartrate (Metoprolol Tartrate 25 Mg Tablet) 25 mg PO BID [facility]; Protocol Last Admin: 06/29/23 08:24 Dose: 25 mg Documented By: ALBA Naloxone HCl (Naloxone Hcl 0.4 Mg/Ml Vial) 0.2 mg IVPUSH Q2M PRN PRN Reason: Excessive sedation or RR < 8 Ondansetron HCl (Ondansetron Hcl 4 Mg/2 Ml Vial) 4 mg IVPUSH Q8H PRN PRN Reason: Nausea and Vomiting Oxycodone HCl (Oxycodone Hcl Immed Release 5 Mg Tablet) 5 mg PO Q4H PRN PRN Reason: Pain, Moderate(Pain Scale 4-6) Last Admin: 06/29/23 08:24 Dose: 5 mg Documented By: ALBA Oxycodone HCl (Oxycodone Hcl Immed Release 5 Mg Tablet) 10 mg PO Q4H PRN PRN Reason: Pain, Severe (Pain Scale 7-10) Last Admin: 06/28/23 08:43 Dose: 10 mg Documented By: ALBA Polyethylene Glycol (Polyethylene Glycol 3350 17 Gm Powd.Pack) 17 gm PO BID PRN PRN Reason: Constipation Last Admin: 06/29/23 08:24 Dose: 17 gm Documented By: ALBA Sodium Chloride (0.9 % Sodium Chloride Flush 3 Ml Syringe) 3 ml IVFSH [facility] Last Admin: 06/29/23 08:25 Dose: 3 ml Documented By: ALBA Labs 06/28/23 06:54 06/28/23 06:54 Labs: Laboratory Results - last 24 hr 06/28/23 06:54 Anion Gap 16 Estim Creat Clear Calc 69.4 Estimated GFR > 60 Random Glucose 102 Calcium 10.0 Assessment and Plan (1) Recurrent spontaneous pneumothorax: Status: Acute Plan 67-year-old man admitted for recurrent pneumothorax. Status post bronchoscopy with transfer to ICU due to difficult extubation postop. Successfully extubated on 06/27/2023 in transfer to medical floor Spontaneous pneumothorax Status post bronchoscopy, pneumonolysis, left thoracoscopic blebectomy, apical parietal pleurectomy, chemical pleurodesis, intercostal nerve block 06/26 Chest tube removed 06/27/2023, dressing removed today, continue daily dsg Continue supplemental oxygen Thoracic surgery following Pain management oob ambulating check chest CT, ? of consolidation History of DVT On lifelong Eliquis Restarted today COPD No exacerbation Albuterol as needed Hyperlipidemia Continue statin hypertension Continue metoprolol DVT prophylaxis with Mallorie attending Dr. Guillen Full code Continue hospitalization for treatment of spontaneous pneumothorax requiring close monitoring of respiratory status Time Spent With Patient Time: Total time managing care of this patient today ____ minutes. Quality Stroke Does the patient have a stroke diagnosis?: No VTE Prior VTE?: No VTE Risk Level:: Medical - moderate - high VTE Device Contraindication: Treatment Not Indicated VTE Drug Contraindication: N/A - Med Ordered
[2023-06-29 11:03] VITALS: BP 109/63; PULSE 60; RESP 20; TEMP 36.4; O2SAT 92
[2023-06-29 15:13] VITALS: BP 115/69; PULSE 73; RESP 14; TEMP 36.4; O2SAT 95
[2023-06-29 19:26] VITALS: BP 109/65; PULSE 89; RESP 15; TEMP 36.7; O2SAT 92
[2023-06-29] MEDS: hydrOXYzine HCL 50 MG TABLET PO (22:30)
[2023-06-29 23:29] VITALS: BP 149/74; PULSE 78; RESP 18; TEMP 36.8; O2SAT 92
[2023-06-30] MEDS: Acetaminophen 1,000 MG/100 ML PIGGYBACK 400 MG IV ×2 (02:03→08:55)
[2023-06-30 04:00] VITALS: BP 109/61; PULSE 77; RESP 18; TEMP 37.1; O2SAT 93
[2023-06-30 06:00] VITALS: BMI 25.5
[2023-06-30 07:36] VITALS: BP 126/69; PULSE 74; RESP 20; TEMP 36.6; O2SAT 92
[2023-06-30] MEDS: Metoprolol Tartrate 25 MG TABLET PO ×2 (08:55→20:41)
[2023-06-30] MEDS: Apixaban 5 MG TABLET PO ×2 (08:55→20:41)
[2023-06-30] MEDS: oxyCODONE HCl Immed Release 5 MG TABLET 10 MG PO (08:55)
[2023-06-30] MEDS: 0.9 % Sodium Chloride Flush 3 ML SYRINGE IVFLUSH ×4 (08:56→19:37)
[2023-06-30 11:36] VITALS: BP 109/67; PULSE 65; RESP 20; TEMP 36.6; O2SAT 94
--- NOTE | 2023-06-30 11:48 | HO.PM.IMPN ---
Subjective Subjective Date of Service: 06/30/23 Interval History: seen and examined this morning follow up for left pneumothorax denies sob, has some dry cough Complaints of pain to chest area Review of Systems Review of Systems: Yes all other systems are reviewed and are negative Constitutional Constitutional: Denies chills and Denies fever(s) Cardiovascular Cardiovascular: Denies chest pain and Denies dyspnea Respiratory Respiratory: Denies dyspnea Gastrointestinal Gastrointestinal: Denies abdominal pain Physical Exam Vital Signs: Vital Signs: Last Vital Signs Temp 97.8 F 06/30/23 11:36 Pulse 65 06/30/23 11:36 Resp 20 06/30/23 11:36 BP 109/67 06/30/23 11:36 Pulse Ox 94 06/30/23 11:36 O2 Del Method Nasal Cannula 06/30/23 11:36 O2 Flow Rate 2 06/30/23 11:36 FiO2 30 06/26/23 15:07 Oxygen Flow Rate 6 06/25/23 16:16 BMI result Body Mass Index 25.5 Appearing in no acute distress lung sounds are clear to auscultation heart regular rate rhythm, clear S1, S2 positive bowel sounds, abdomen is soft, nontender neuro patient is alert x3, no focal deficits Objective Data Active Medications Albuterol Sulfate (Albuterol Sulfate (0.083%) 2.5 Mg/3 Ml Vial.Neb) 2.5 mg INHALE Q4H PRN PRN Reason: Wheezing Apixaban (Apixaban 5 Mg Tablet) 5 mg PO BID ALPHONSE Last Admin: 06/30/23 08:55 Dose: 5 mg Documented By: ILIANA Docusate Sodium (Docusate Sodium 100 Mg Capsule) 200 mg PO BEDTIME REPLACED BY [facility] Hydromorphone HCl (Hydromorphone Hcl 0.5 Mg/0.5 Ml Syringe) 0.5 mg IVPUSH Q3H PRN; Protocol PRN Reason: Pain, Severe (Pain Scale 7-10) Last Admin: 06/29/23 22:30 Dose: 0.5 mg Documented By: PABLITO Hydroxyzine HCl (Hydroxyzine Hcl 50 Mg Tablet) 50 mg PO BEDTIME PRN PRN Reason: Insomnia Last Admin: 06/29/23 22:30 Dose: 50 mg Documented By: PABLITO Acetaminophen (Ofirmev) 1,000 mg in 100 mls @ 400 mls/hr IV Q6H REPLACED BY [facility] Last Infusion: 06/30/23 09:35 Dose: 0 mls/hr Documented By: ILIANA Metoprolol Tartrate (Metoprolol Tartrate 25 Mg Tablet) 25 mg PO BID REPLACED BY [facility]; Protocol Last Admin: 06/30/23 08:55 Dose: 25 mg Documented By: ILIANA Naloxone HCl (Naloxone Hcl 0.4 Mg/Ml Vial) 0.2 mg IVPUSH Q2M PRN PRN Reason: Excessive sedation or RR < 8 Ondansetron HCl (Ondansetron Hcl 4 Mg/2 Ml Vial) 4 mg IVPUSH Q8H PRN PRN Reason: Nausea and Vomiting Oxycodone HCl (Oxycodone Hcl Immed Release 5 Mg Tablet) 5 mg PO Q4H PRN PRN Reason: Pain, Moderate(Pain Scale 4-6) Last Admin: 06/29/23 17:20 Dose: 5 mg Documented By: SARIKA-RIVGLADYS Oxycodone HCl (Oxycodone Hcl Immed Release 5 Mg Tablet) 10 mg PO Q4H PRN PRN Reason: Pain, Severe (Pain Scale 7-10) Last Admin: 06/30/23 08:55 Dose: 10 mg Documented By: ILIANA Polyethylene Glycol (Polyethylene Glycol 3350 17 Gm Powd.Pack) 17 gm PO BID PRN PRN Reason: Constipation Last Admin: 06/29/23 19:58 Dose: 17 gm Documented By: PABLITO Sodium Chloride (0.9 % Sodium Chloride Flush 3 Ml Syringe) 3 ml IVFLUSH [facility] Last Admin: 06/30/23 08:56 Dose: 3 ml Documented By: ILIANA Labs 06/28/23 06:54 06/28/23 06:54 Assessment and Plan (1) Recurrent spontaneous pneumothorax: Status: Acute Plan 67-year-old man admitted for recurrent pneumothorax. Status post bronchoscopy with transfer to ICU due to difficult extubation postop. 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 Guillen Full code Continue hospitalization for treatment of spontaneous pneumothorax requiring close monitoring of respiratory status Time Spent With Patient Time: Total time managing care of this patient today ____ minutes. Quality Stroke Does the patient have a stroke diagnosis?: No VTE Prior VTE?: No VTE Risk Level:: Medical - moderate - high VTE Device Contraindication: Treatment Not Indicated VTE Drug Contraindication: N/A - Med Ordered
[2023-06-30] MEDS: Piperacillin Sodium/Tazobactam 3.375 GM in 0.9 % Sodium Chloride 50 ML IV ×2 (12:35→17:08)
[2023-06-30] MEDS: vancomycin HCL 1,000 MG, vancomycin HCL 750 MG in 0.9 % Sodium Chloride 500 ML 267.5 MG IV (13:50)
[2023-06-30 13:51] LABS: Creatinine Clr Calc Pharmacy 53.7; Estimated Glomerular Filt Rate 52
--- NOTE | 2023-06-30 14:05 | PHA.PROG ---
Admission Date/Time: June 25, 2023 19:07 Indication: Respiratory Weight in k.4 kg Adjusted body weight in Kg: [place] body weight in Kg: Obesity Dosing Indication % IBW: Serum Creatinine - Last 168 Hours 06/25/23 06/26/23 06/26/23 17:51 05:25 14:12 Creatinine 1.46 H 1.15 1.21 06/27/23 06/28/23 06/30/23 04:42 06:54 13:29 Creatinine 1.16 1.06 1.37 Estimated CrCl and GFR - Last 168 Hours 06/25/23 06/26/23 06/26/23 17:51 05:25 14:12 Estim Creat Clear Calc 50.4 64.0 60.8 Estimated GFR 48 > 60 > 60 06/27/23 06/28/23 06/30/23 04:42 06:54 13:29 Estim Creat Clear Calc 63.4 69.4 53.7 Estimated GFR > 60 > 60 52 Vancomycin Loading Dose: 1750mg x 1 Current Vancomycin Dosing Regimen: 1250mg Q24H Vancomycin Monitoring using AUC goal of 400 - 600 range with trough as surrogate marker: Modified- 480 mg/L; Bowling- 486 mg/L Date and Time for next Vancomycin Level to be drawn: 07/03/23 @1200 Pharmacist Comments on Vancomycin Plan: Modified version trough of 14.3 mg/L; Bowling version trough of 12.7 mg/L. Will continue to monitor renal function Vancomycin dosing will take advantage of [employer] as a clinical decision support tool that uses Bayesian modeling to calculate individual patient's pharmacokinetic parameters and forecast the patient's drug concentration time course with the target goal AUC 24 range of 400 - 600 mg/L/hr.
[2023-06-30 15:43] VITALS: BP 108/71; PULSE 63; RESP 20; TEMP 36.2; O2SAT 93
[2023-06-30] MEDS: HYDROmorphone HCl 0.5 MG/0.5 ML SYRINGE IVPUSH (19:26)
[2023-06-30 19:29] VITALS: BP 100/65; PULSE 82; RESP 18; TEMP 36.6; O2SAT 90
[2023-06-30 23:26] VITALS: BP 157/62; PULSE 69; RESP 18; TEMP 36.8; O2SAT 92
[2023-07-01] VITALS (7 sets, daily range): BP systolic 100–141; BP diastolic 61–69; PULSE 69–91; RESP 15–18; TEMP 36.1–36.8; O2SAT 87–95; BMI 25.5
[2023-07-01] MEDS: hydrOXYzine HCL 50 MG TABLET PO (00:01)
[2023-07-01] MEDS: Piperacillin Sodium/Tazobactam 3.375 GM in 0.9 % Sodium Chloride 50 ML IV ×3 (00:02→12:46)
[2023-07-01] MEDS: HYDROmorphone HCl 0.5 MG/0.5 ML SYRINGE IVPUSH ×2 (00:02→06:09)
[2023-07-01 07:21] LABS: Creatinine Clr Calc Pharmacy 59.3; Estimated Glomerular Filt Rate 59
[2023-07-01] MEDS: Apixaban 5 MG TABLET PO (07:55)
[2023-07-01] MEDS: oxyCODONE HCl Immed Release 5 MG TABLET 10 MG PO ×2 (07:55→12:01)
[2023-07-01] MEDS: Metoprolol Tartrate 25 MG TABLET PO (07:55)
[2023-07-01] MEDS: 0.9 % Sodium Chloride Flush 3 ML SYRINGE IVFLUSH ×2 (07:56→14:40)
--- NOTE | 2023-07-01 11:19 | PM.DS ---
DS: Providers Provider Date of Service: 07/01/23 Date of admission: 06/25/23 19:07 Primary care physician: Unknown Physician Consults: 06/25/23 19:07 Consult to Thoracic Surgery Routine Consulting Provider: [facility] Thoracic Surgeons Reason for consultation: Pneumothorax DS: Diagnosis Discharge Diagnosis (1) Recurrent spontaneous pneumothorax: Status: Acute DS: Summary Hospital Course Hospital Course: History and physical as per admitting provider. This is a 67-year-old male with pertinent history of DVT on Eliquis, mixed hyperlipidemia, COPD not on home oxygen, mood disorder who presents to the emergency department for evaluation of dyspnea.? Patient was recently admitted on 06/14 with spontaneous pneumothorax when chest tube was placed.? Chest tube was removed on 06/16 and patient was discharged home.? He had an appointment with pulmonology outpatient.? Repeat chest x-ray revealed left-sided pneumothorax and he was sent to the ER.? Does endorse dyspnea, worse with exertion.? Denies chest discomfort or palpitations.? No fever, chills, abdominal pain, changes in urinary or bowel habits.? Patient states he quit smoking on 06/14 during previous admission. In the emergency department, chest tube was placed and thoracic surgery was consulted Patient is status post bronchoscopy, pneumo lysis, left thorascopic blood back to vt, apical parietal pleurectomy, chemical pleurodesis on 06/26/2023 secondary to spontaneous left pneumothorax. Patient continue to have some shortness of breath on hypoxia, chest CT obtained which showed bilateral lower lobe atelectasis and consolidation, right greater than left with possible small infiltrate in the right middle lobe, small left hydropneumothorax and small amount of chest wall subcutaneous emphysema. He has been ambulating and had a home oxygen evaluation, plan will be for him to go home with 3 L nasal cannula. He should follow-up with the thoracic surgeon in 1 week. For the consolidation, will continue Augmentin and doxycycline for 6 more days for total of 7 day treatment. Hyperlipidemia. Continue statin Hypertension. Continue beta-coreen History of DVT. Continue Eliquis Tobacco use. Smoking cessation encouraged Time Spent with Patient Time attestation: Total time managing care of this patient today ____ minutes. Discharge coordination time: Greater than 30 minutes Quality: Safe Use of Opioids Does Pt have an Active Cancer Diagnosis on the Problem List?: No Quality: Stroke Does the patient have a stroke diagnosis?: No Physical Exam Vital Signs: Vital Signs: Last Vital Signs Temp 98.0 F 07/01/23 07:36 Pulse 80 07/01/23 07:36 Resp 18 07/01/23 07:36 BP 141/66 H 07/01/23 07:36 Pulse Ox 90 L 07/01/23 07:36 O2 Del Method Nasal Cannula 07/01/23 07:36 O2 Flow Rate 2 07/01/23 07:36 FiO2 30 06/26/23 15:07 Oxygen Flow Rate 6 06/25/23 16:16 BMI result Body Mass Index 25.5 DS: Data Data Completed and Pending Completed studies during hospitalization [Text1]: Pending at discharge 06/26/23 11:37 Surgical [PTH] Routine Procedures Drainage of Left Pleural Cavity with Drainage Device, Percutaneous Approach (06/14/23) Labs on day of discharge: Laboratory Results - last 24 hr 06/30/23 07/01/23 13:29 06:29 Creatinine 1.37 1.24 Estim Creat Clear Calc 53.7 59.3 Estimated GFR 52 59 Discharge Plan Discharge Anticipated Discharge Date/Time: 07/01/23 11:16 Patient Disposition: Home Health Service Discharge Diagnosis: Spontaneous pneumothorax Referrals: [facility] [Other] - 1 Week Mario Castellano MD [Physician] - 1 Week Discharge Medications: New hydroxyzine HCl 50 mg Tablet 50 mg PO BEDTIME PRN (Reason: Insomnia) Qty: 30 0RF doxycycline hyclate 100 mg tablet 100 mg PO BID Qty: 12 0RF amoxicillin-pot clavulanate 875-125 mg tablet 1 tab PO BID Qty: 12 0RF Continued atorvastatin 20 mg tablet 20 mg PO DAILY albuterol sulfate [Ventolin HFA] 90 mcg/actuation HFA aerosol inhaler 2 puff INHALATION Q6H PRN (Reason: wheezing) metoprolol tartrate 25 mg tablet 25 mg PO BID Eliquis 5 mg tablet 5 mg PO BID Trelegy Ellipta 100-62.5-25 mcg blister with device 1 ea inhalation DAILY hydroxyzine pamoate 50 mg capsule 100 mg PO BEDTIME nicotine [Nicoderm CQ] 14 mg/24 hr patch 24 hour 1 patch transdermal DAILY PRN (Reason: Nicotine Cravings) Discharge Orders: Discharge Order (Routine); Ordered 07/01/23 Ordered By: Dari Nick Diet: Advance to usual diet Activity on Discharge: As tolerated Stand Alone Forms: Patient Portal Discharge page Activity Restrictions/Additional Instructions: Remove outside dressing only. Leave Steri-Strips intact. No strenuous activities Care Plan Goals: Complete resolution of symptoms Health Concerns: Spontaneous pneumothorax Bronchoscopy, left thorascopic bleb ectomy, apical parietal pleurectomy, chemical pleurodesis Plan of Treatment: Follow-up with thoracic surgeon in 1 week Take all medications as prescribed Assessment: See discharge summary
--- NOTE | 2023-07-01 12:45 | MHC.CM.PN ---
Per ROUNDS discussion, Patient will be medically cleared for dc to home today with services. Patient is active with [facility], who has been notified of today's dc and per Patient's request, CM asked [facility] to eval for increased # of [facility] hours. IMM addressed at bedside with Patient and original was given to him and a copy has been placed on the chart. Patient does not wish to appeal the dc and [facility] will transport home.
[2023-07-01] MEDS: vancomycin HCL 1,250 MG in 0.9 % Sodium Chloride 250 ML 166.67 MG IV (14:38)
--- NOTE | 2023-07-02 16:17 | P.CDIM_ITS ---
PROVIDER RESPONSE TEXT: To clarify, the appropriate diagnosis supported by the clinical indicators: Other (explain): chronic after pneumothorax QUERY TEXT: PHYSICIAN'S DOCUMENTATION REQUEST Date of Query: 07/01/2023 07:23 AM EDT Patient Name: Bernard Rhodes Admit Date: 06/25/2023 Dear Dari Romero, A review of the medical record indicates additional documentation may be needed. Please review below and update the documentation accordingly. Clinical Indicators: Per Hospitalist Progress Note 06/30/23: Status post bronchoscopy with transfer to ICU due to difficult extubation postop. Successfully extuba yamile on 06/27/2023 Please clarify which of the following accurately represents the patient s respiratory status followin g surgery: Acute pulmonary insufficiency following surgery Acute respiratory failure due to an underlying condition (specify), and not a complication of surgery Other (explain)Clinically unable to determine (explain)Thank you, Aurora Rod RN Use of terms such as suspected, likely, concern for, or probable (associated with a specific diagnosi s that is being evaluated, monitored, or treated as if it exists) are acceptable and can be coded in the inpatient se tting, when documented at the time of discharge. Please use your independent medical judgment in providing your response. THIS QUERY IS PART OF THE PERMANENT MEDICAL RECORD
== END 2023-07-01 16:55 | disposition home health service (06) | DRG 163 ==
LOC: HO.ED 17:25 → HO.EDOVER 19:12 → HO.S3 19:28 → HO.IMC 06-26 12:33 → HO.ICU 06-26 12:57 → HO.IMC 06-27 11:52
PROVIDERS: Internal Medicine Pulmonary Disease; Physician Assistant Medical; Surgery; Admitting Provider Student in an Organized Health Care Education/Training Program; Emergency Provider Emergency Medicine; PCP Internal Medicine; Visit Provider Nurse Practitioner Acute Care
PROC: 0BB Respiratory System, Excision (ICD-10-PCS; principal; 2023-06-26 09:40)
DX: J98.2 Interstitial emphysema (principal); J18.9 Pneumonia, unspecified organism; J96.01 Acute respiratory failure with hypoxia; D68.59 Other primary thrombophilia; J93.12 Secondary spontaneous pneumothorax; E78.2 Mixed hyperlipidemia; I12.9 Hypertensive chronic kidney disease with stage 1 through stage 4 chronic kidney disease, or unspecified chronic kidney disease; N18.30 Chronic kidney disease, stage 3 unspecified; J98.4 Other disorders of lung; F39 Unspecified mood [affective] disorder; Z20.822 Contact with and (suspected) exposure to COVID-19; Z86.19 Personal history of other infectious and parasitic diseases; Z86.718 Personal history of other venous thrombosis and embolism; Z87.891 Personal history of nicotine dependence; Z79.01 Long term (current) use of anticoagulants; Z79.899 Other long term (current) drug therapy
CPT/HCPCS: 36415; 71045; 71250; 80048; 82040; 82565; 82803; 83735; 84100; 85025; 85027; 85610; 87635; 88305; 94002; 94640; 97116; 97162; 99285; J0131; J0690; J1170; J2250; J2270; J2371; J2405; J2543; J2795; J3010; J3370; J3371

== ENCOUNTER → 2023-06-25 19:07 | Outpatient (BNV) | payer OTHER, SELFPAY | PROVIDERS: Admitting Provider Student in an Organized Health Care Education/Training Program; Emergency Provider Emergency Medicine; Visit Provider Internal Medicine Pulmonary Disease | DX: J93.83 Other pneumothorax (principal) | CPT/HCPCS: 99232; 99291 ==

== ENCOUNTER → 2023-06-25 19:07 | Outpatient (BNV) | payer OTHER, SELFPAY | PROVIDERS: Admitting Provider Student in an Organized Health Care Education/Training Program; Emergency Provider Emergency Medicine; Visit Provider Surgery | DX: J93.83 Other pneumothorax (principal) | CPT/HCPCS: 32655; 32940; 99024; 99223 ==

== ENCOUNTER → 2023-06-25 19:07 | Outpatient (BNV) | payer OTHER, SELFPAY | PROVIDERS: Admitting Provider Student in an Organized Health Care Education/Training Program; Emergency Provider Emergency Medicine; Visit Provider Student in an Organized Health Care Education/Training Program | DX: J93.83 Other pneumothorax (principal) | CPT/HCPCS: 99222; 99232; 99239; 99499 ==

== ENCOUNTER 2023-07-18 11:07 | Outpatient (AMB) | payer OTHER, SELFPAY ==
[2023-07-18 11:14] VITALS: BP 114/73; PULSE 67; O2SAT 98
--- NOTE | 2023-07-18 11:14 | MHC.OFFVIS ---
Intake Vital Signs 07/18/23 11:14 Weight 169 lb BP 114/73 Blood Pressure Location Rt brachial Position Sitting Pulse 67 Pulse Oximetry (%) 98 Oxygen Delivery Method Room Air Oxygen Flow Rate 98 Intake Visit Reasons: S/p bronchoscopy Intake Note: Patient here s/p bronchoscopy. Reports incisions healing well. Only taking tylenol for pain. Patient recently seen at [facility] and had CT lung screening, low dose on 07-15-23. Does not wish to have any more procedures. Transfer Table Operator Helper Required: No Accompanied by: Self / Same As Patient Allergies Iodinated Contrast Media [Contrast Dye] Allergy (Verified 07/18/23 11:18) Hives HPI HPI Comments History of Present Illness Details Status post VATS left upper lobectomy for for recurrent pneumothorax. Patient has no respiratory issues or complaints. He has some incisional discomfort most likely related to intercostal nerve neurapraxia O2 saturation 99% [facility] Medical History Protein C deficiency History of hepatitis C History of deep vein thrombosis On anticoagulant therapy Tobacco abuse COPD (chronic obstructive pulmonary disease) Mixed hyperlipidemia Surgical History History of ERCP History of chest tube placement History of surgery on lower extremity History of cholecystectomy Family History Father Oral cancer Mother Stroke Social History Household Members: None Housing: Apartment Do you presently have visiting nurse or other home services: Yes Alcohol intake: never Patient Tobacco Use Status: Former Tobacco user Quit Date: 06/13/23 Tobacco use type: Cigarette Cigarettes Per Day: -3 Second Hand Smoke Exposure: No Advance Directives Date on File: 06/17/23 service: No Physical Exam Vital Signs: Last Vital Signs Pulse 67 07/18/23 11:14 BP 114/73 07/18/23 11:14 Pulse Ox 98 07/18/23 11:14 Oxygen Delivery Method Room Air 07/18/23 11:14 Oxygen Flow Rate 98 07/18/23 11:14 Chest Other: Breath sounds bilaterally. Incisions clean dry and intact healing uneventfully. Assessment & Plan Assessment & Plan (1) History of pneumothorax: Code(s): Z87.09 - Personal history of other diseases of the respiratory system Plan Patient had incidental CT scan screening for lung cancer at [facility] which was essentially within normal limits and showing postop changes. The present time, patient has been given local instructions and the patient regarding his intercostal pain. Told this could take 6 months to a year to resolve. Should avoid strenuous activities for next few weeks time. Patient otherwise follow-up p.r.n.. Coding Level of Care Code Global (66224) Diagnoses History of pneumothorax Z87.09
== END 2023-07-18 11:35 | disposition home or self-care (01) ==
PROVIDERS: PCP Internal Medicine; Visit Provider Surgery
DX: Z87.09 Personal history of other diseases of the respiratory system (principal)
CPT/HCPCS: 99024

== ENCOUNTER → 2023-07-18 11:07 | Outpatient (BNVA) | payer OTHER, SELFPAY | PROVIDERS: PCP Internal Medicine; Visit Provider Surgery ==